=== PATIENT | male | born 1975 | race Caucasian/White ===

== ENCOUNTER 2016-08-15 14:09 | Emergency (ER) | payer BC, OTHER ==
[~2016-08-15] VITALS: Ht 188 cm; Wt 98.0 kg
--- NOTE | 2016-08-15 14:22 | ED General ---
General Stated Complaint: ELEV BLOOD SUGAR/CHEST PAIN/RACING HEART Source of Information: Patient Exam Limitations: No Limitations History of Present Illness Time Seen by Provider: 14:20 Initial Comments To ER with reports of hyperglycemia and palpitations. He awakened about one hour ago "drenched in sweat" and had sensation of palpitations. He denies chest pain. He denies shortness of breath. He checked his blood sugar and found it to be 399. This is unusual for him, though he is a diabetic his sugars normally are in the 200-300 range. He takes Byetta, glimepiride, metformin. He denies fevers or chills. He denies cough. Denies unilateral leg swelling. Denies personal known history of heart disease. He is a lifelong nonsmoker. 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 Timing/Duration: 1 Hour Severity: Moderate Associated Systoms: Denies Symptoms Allergies and Home Medications Allergies Coded Allergies: Tetanus Vaccines and Toxoid (Verified Adverse Reaction, Unknown, fever chills, 08/15/16) Home Medications Exenatide 5 Mcg/0.02 Ml Pen.injctr #3 (Reported) Gabapentin 300 Mg Capsule #90 (Reported) Glyburide 1.25 Mg Tablet (Reported) Ibuprofen 800 Mg Tablet #42 (Reported) Lisinopril 20 Mg Tablet (Reported) Metformin HCl 500 Mg Tablet (Reported) Constitutional: see HPI EENTM: see HPI Respiratory: no symptoms reported Cardiovascular: see HPINo chest pain, No edema, No Hx of Intervention, palpitations Genitourinary: no symptoms reported Musculoskeletal: no symptoms reported Skin: no symptoms reported Psychiatric/Neurological: No Symptoms Reported Hematologic/Lymphatic: No Symptoms Reported Past Wwbqucp-Djrrle-Akhwqn Hx Patient Social History Recent Foreign Travel: No Contact w/Someone Who Travel: No Physical Exam Vital Signs Vital Sign - Last 12Hours 08/15/16 14:09 Temp 98.2 Pulse 101 Resp 18 B/P 149/101 Pulse Ox 98 O2 Delivery Room Air Capillary Refill : General Appearance: No Apparent Distress WD/WN Anxious Eyes: Bilateral Eye EOMI, Bilateral Eye Normal Inspection, Bilateral Eye PERRL HEENT: PERRL/EOMI TMs Normal Neck: Full Range of Motion Normal Inspection Respiratory: Normal Breath Sounds No Accessory Muscle Use No Respiratory Distress Cardiovascular: Regular Rate, Rhythm Normal Peripheral Pulses Other (no ectopy seen on monitor, no ST segment changes on EKG.) Gastrointestinal: Normal Bowel Sounds Non Tender Soft Extremity: Normal Capillary Refill Normal Inspection Neurologic/Psychiatric: Alert Oriented x3 No Motor/Sensory Deficits Normal Mood/Affect Skin: Normal Color Warm/Dry Progress/Results/Core Measures Results/Orders Lab Results Laboratory Tests Test 08/15/16 14:15 08/15/16 14:20 08/15/16 15:28 08/15/16 16:02 Range/Units Glucometer 399 H 195 H 70-110 MG/DL Alanine Aminotransferase (ALT/SGPT) 17 0-55 U/L Albumin 4.1 3.2-4.5 G/DL Alkaline Phosphatase 184 H 40-136 U/L Anion Gap 13 5-14 MMOL/L Aspartate Amino Transf (AST/SGOT) 25 5-34 U/L BUN/Creatinine Ratio 16 Basophils # (Auto) 0.0 0.0-0.1 10^3/uL Basophils (%) (Auto) 0 0-10 % Blood Urea Nitrogen 16 7-18 MG/DL Calcium Level 9.2 8.5-10.1 MG/DL Carbon Dioxide Level 18 L 21-32 MMOL/L Chloride Level 102 98-107 MMOL/L Creatinine 1.02 0.60-1.30 MG/DL D-Dimer 0.30 0.00-0.49 UG/ML Eosinophils # (Auto) 0.1 0.0-0.3 10^3/uL Eosinophils (%) (Auto) 2 0-10 % Estimat Glomerular Filtration Rate > 60 Free Thyroxine 1.09 0.70-1.48 NG/DL Glucose Level 464 *H 70-105 MG/DL Hematocrit 44 40-54 % Hemoglobin 15.5 13.3-17.7 G/DL Lipase 43 8-78 U/L Lymphocytes # (Auto) 1.7 1.0-4.0 X 10^3 Lymphocytes (%) (Auto) 30 12-44 % Mean Corpuscular Hemoglobin 28 25-34 PG Mean Corpuscular Hemoglobin Concent 36 32-36 G/DL Mean Corpuscular Volume 79 L 80-99 FL Mean Platelet Volume 10.7 H 7.4-10.4 FL Monocytes # (Auto) 0.3 0.0-1.0 X 10^3 Monocytes (%) (Auto) 6 0-12 % Neutrophils # (Auto) 3.5 1.8-7.8 X 10^3 Neutrophils (%) (Auto) 62 42-75 % Platelet Count 270 130-400 10^3/uL Potassium Level 4.3 3.6-5.0 MMOL/L Red Blood Count 5.48 4.35-5.85 10^6/uL Red Cell Distribution Width 12.8 10.0-14.5 % Sodium Level 133 L 135-145 MMOL/L Total Bilirubin 0.4 0.1-1.0 MG/DL Total Protein 7.6 6.4-8.2 G/DL Troponin I < 0.30 <0.30 NG/ML White Blood Count 5.6 4.3-11.0 10^3/uL Urine Bacteria NEGATIVE /HPF Urine Bilirubin NEGATIVE NEGATIVE Urine Casts NONE /LPF Urine Clarity CLEAR Urine Color YELLOW Urine Crystals NONE /LPF Urine Culture Indicated NO Urine Glucose (UA) 4+ H NEGATIVE Urine Ketones NEGATIVE NEGATIVE Urine Leukocyte Esterase NEGATIVE NEGATIVE Urine Mucus NEGATIVE /LPF Urine Nitrite NEGATIVE NEGATIVE Urine Protein NEGATIVE NEGATIVE Urine RBC NONE /HPF Urine RBC (Auto) NEGATIVE NEGATIVE Urine Specific [place] 1.010 L 1.016-1.022 Urine Squamous Epithelial Cells NONE /HPF Urine Urobilinogen NORMAL NORMAL MG/DL Urine WBC NONE /HPF Urine pH 6 5-9 Test 08/15/16 17:01 Range/Units Troponin I < 0.30 <0.30 NG/ML My Orders Orders-ROSALVA SOTOMAYOR APRN Cbc With Automated Diff (08/15/16 14:12) Comprehensive Metabolic Panel (08/15/16 14:12) Lipase (08/15/16 14:12) Ua Culture If Indicated (08/15/16 14:12) Chest Pa/Lat (2 View) (08/15/16 14:12) Troponin I (08/15/16 14:12) Ekg Tracing (08/15/16 14:12) Fibrin Degradation Products (08/15/16 14:12) Aspirin Chewable Tablet (Baby Aspirin Ch (08/15/16 14:30) Alprazolam Tablet (Xanax Tablet) (08/15/16 14:30) Free T4 (Free Thyroxine) (08/15/16 14:22) Ns Iv 1000 Ml (Sodium Chloride 0.9%) (08/15/16 14:45) Insulin (Regular) Human (Humulin R (Per (08/15/16 14:45) Ondansetron Injection (Zofran Injectio (08/15/16 16:15) Troponin I (08/15/16 16:49) Medications Given in ED Current Medications Medications Dose Ordered Sig/Felicia Route Start Time Stop Time Status Last Admin Dose Admin Aspirin 324 mg ONCE ONCE PO 08/15/16 14:30 08/15/16 14:31 DC 08/15/16 14:24 324 MG Insulin Human Regular 6 unit ONCE ONCE IV 08/15/16 14:45 08/15/16 14:46 DC 08/15/16 15:09 6 UNIT Ondansetron HCl 8 mg ONCE ONCE IVP 08/15/16 16:15 08/15/16 16:16 DC 08/15/16 16:08 8 MG Vital Signs/I&O Vital Sign - Last 12Hours 08/15/16 14:09 Temp 98.2 Pulse 101 Resp 18 B/P 149/101 Pulse Ox 98 O2 Delivery Room Air Diagnostic Imaging Diagonstic Imaging: Xray Plain Films/CT/US/NM/MRI: chest Comments NAME: GEN ERIC [facility] REC#: [id number] PT STATUS: REG ER : 1975 PHYSICIAN: ROSALVA SOTOMAYOR APRN ADMIT DATE: 08/15/16/ER Draft Date of Exam:08/15/16 CHEST PA/LAT (2 VIEW) INDICATION: Tachycardia. COMPARISON: None. FINDINGS: Frontal and lateral views of the chest demonstrate questionable subtle infiltrate in the left base. The right lung is clear. Heart size is normal. There is no pneumothorax or effusion. IMPRESSION: Questionable infiltrate left base. Follow-up recommended. Dictated on workstation # [id number] Dict: 08/15/16 1440 Trans: 08/15/16 1449 [id number] Interpreted by: ANA GUTIÉRREZ Electronically signed by: Departure Communication Progress Notes Patient's requests a prescription for some sort of insulin to keep his blood sugar down as it is inadequately controlled with his Byetta glimepiride and metformin. This would be reasonable. She states that he is in a transition between physicians at this time and does not have a physician and would like me to write for this. He does currently give himself injections of the Byetta and her father is a diabetic and she draws up her father's insulin and is familiar with how to inject and draw up this medication. I've written for a prescription for Levemir vial 10 units daily at bedtime and a separate prescription for insulin syringes. Impression Impression: Primary Impression: Palpitations Additional Impression: general malaise Disposition: HOME, SELF-CARE Condition: Stable Departure-Patient Inst. Decision time for Depature: 16:27 Referrals: NO,LOCAL PHYSICIAN (PCP/Family) Primary Care Physician Patient Instructions: Diabetes Type 2 (DC), Palpitations Add. Discharge Instructions: 1. Follow-up with one of the physicians listed 2. Return to ER for any worsening Work/School Note: Work Release Form Date Seen in the Emergency Department: Aug 15, 2016 Return to Work: Aug 17, 2016 Restrictions: No Restrictions ROSALVA SOTOMAYOR APRN Aug 15, 2016 14:22
[2016-08-15 14:25] LABS: BASOPHILS % (AUTO) 0 % (0-10); EOSINOPHILS # (AUTO) 0.1 10^3/uL (0.0-0.3); EOSINOPHILS % (AUTO) 2 % (0-10); LYMPHOCYTES # (AUTO) 1.7 X 10^3 (1.0-4.0); LYMPHOCYTES % (AUTO) 30 % (12-44); MEAN CORPUSCULAR HEMOGLOBIN 28 PG (25-34); MEAN CORPUSCULAR HGB CONC 36 G/DL (32-36); MEAN CORPUSCULAR VOLUME 79 FL (80-99); MEAN PLATELET VOLUME 10.7 FL (7.4-10.4); MONOCYTES # (AUTO) 0.3 X 10^3 (0.0-1.0); MONOCYTES % (AUTO) 6 % (0-12); NEUTROPHILS # (AUTO) 3.5 X 10^3 (1.8-7.8); NEUTROPHILS % (AUTO) 62 % (42-75); PLATELET COUNT 270 10^3/uL (130-400); RED BLOOD COUNT 5.48 10^6/uL (4.35-5.85); RED CELL DISTRIBUTION WIDTH 12.8 % (10.0-14.5); WHITE BLOOD COUNT 5.6 10^3/uL (4.3-11.0)
[2016-08-15] MEDS ORDERED: GLYB1.253 (14:29)
[2016-08-15] MEDS ORDERED: METF500T4 (14:29)
[2016-08-15] MEDS ORDERED: LISI-552 (14:29)
[2016-08-15] MEDS ORDERED: IBUP-1780 (14:29)
[2016-08-15] MEDS ORDERED: GABA-488 (14:29)
[2016-08-15] MEDS ORDERED: EXEN5PEN2 (14:29)
[2016-08-15] MEDS ORDERED: ALPRAZolam 0.5 MG (XANAX) TAB PO SCH (14:30)
[2016-08-15] MEDS ORDERED: ASPIRIN 81 MG CHEW (CHILDREN'S ASA) PO ONE (14:30)
[2016-08-15 14:45] LABS: ALANINE AMINOTRANSFERASE 17 U/L (0-55); ALBUMIN 4.1 G/DL (3.2-4.5); ANION GAP 13 MMOL/L (5-14); ASPARTATE AMINO TRANSFERASE 25 U/L (5-34); BILIRUBIN,TOTAL 0.4 MG/DL (0.1-1.0); BLOOD UREA NITROGEN 16 MG/DL (7-18); BUN/CREATININE RATIO 16; CALCIUM 9.2 MG/DL (8.5-10.1); CARBON DIOXIDE 18 MMOL/L (21-32); CHLORIDE 102 MMOL/L (98-107); CREATININE SERUM 1.02 MG/DL (0.60-1.30); GFR ESTIMATED > 60; LIPASE 43 U/L (8-78); POTASSIUM 4.3 MMOL/L (3.6-5.0); SODIUM 133 MMOL/L (135-145); TOTAL PROTEIN 7.6 G/DL (6.4-8.2)
[2016-08-15] MEDS ORDERED: NS IV 1000 ML 1,000 ML IV SCH (14:45)
[2016-08-15] MEDS ORDERED: inSUlin (REGULAR) HUMAN 1 UNIT/0.01 ML (CHARGE PER UNIT) IV ONE (14:45)
[2016-08-15 14:47] LABS: GLUCOSE 464 MG/DL (70-105)
--- NOTE | 2016-08-15 14:49 | Diagnostic Imaging Report ---
INDICATION: Tachycardia. COMPARISON: None. FINDINGS: Frontal and lateral views of the chest demonstrate questionable subtle infiltrate in the left base. The right lung is clear. Heart size is normal. There is no pneumothorax or effusion. IMPRESSION: Questionable infiltrate left base. Follow-up recommended. Dictated by: Dictated on workstation # [id number]
[2016-08-15 14:51] LABS: TROPONIN I < 0.30 NG/ML (<0.30)
[2016-08-15 15:33] LABS: BILIRUBIN,URINE NEGATIVE (NEGATIVE); KETONES,URINE NEGATIVE (NEGATIVE); LEUKOCYTE ESTERASE ,URINE NEGATIVE (NEGATIVE); NITRITE,URINE NEGATIVE (NEGATIVE); PH,URINE 6 (5-9); PROTEIN,URINE NEGATIVE (NEGATIVE); UROBILINOGEN,URINE NORMAL (NORMAL)
[2016-08-15] MEDS ORDERED: ONDANSETRON 4 MG/2 ML (SDV) Z0FRAN IVP ONE (16:15)
[2016-08-15 18:09] VITALS: BP 136/86
== END 2016-08-15 18:09 | disposition home or self-care (01) ==
LOC: ER 14:11
DX: E11.65 Type 2 diabetes mellitus with hyperglycemia (principal); R00.2 Palpitations; Z79.84 Long term (current) use of oral hypoglycemic drugs; Z79.899 Other long term (current) drug therapy; R53.81 Other malaise
CPT/HCPCS: 36415; 71020; 80053; 81000; 82962; 83690; 84439; 84484; 85025; 85379; 93005; 96361; 96374; 96375

== ENCOUNTER → 2016-08-21 | Outpatient (CLI) | payer BC ==
[~2016-08-21] MED LIST: ACET-575 PO; CYCL10TA9 PO; EXEN5PEN2; GABA-488; GABA-488 PO; GLIM4TAB PO; GLYB1.253; IBUP-1780; IBUP-1780 PO; INSU100I32 SQ; INSU100V16 SQ; LISI-552; LISI-552 PO; METF1000 PO; METF500T4; METO10TA3 PO; OXYC-202 PO; PANT40TA3 PO; SERT100T8 PO
--- OUTSIDE RECORDS SUMMARY | 2016-08-21 12:20 | XMS REPORT | Continuity of Care Document ---
Author Author [facility] Organization [facility] Address Unknown Phone Unavailable Care Team Providers Care Gore Seamer Name Role Phone NO, LOCAL PHYSICIAN PCP Unavailable Insurance Providers Payer Name Policy Number Subscriber Name Relationship Unknown Gen Nugent 18 Self / Same As Patient Advance Directives Directive Response Recorded Date/Time Advance Directives No 08/15/16 2:29pm Resuscitation Status Full Code 08/15/16 2:29pm Chief Complaint and Reason for Visit Chief Complaint Glucose Problems Reason for Visit Palpitations general malaise Problems Active Problems Medical Problem Onset Date Status Palpitations Unknown Acute Medications Current Home Medications Medication Dose Units Route Directions Days/Qty Instructions Start Date Gabapentin 300 Mg 90 08/15/16 Ibuprofen 800 Mg 42 08/15/16 Glyburide 1.25 Mg 08/15/16 Metformin Hcl 500 Mg 08/15/16 Lisinopril 20 Mg 08/15/16 Exenatide 5 Mcg/0.02 Ml 3 08/15/16 Social History Social History Problem Response Recorded Date/Time Alcohol Use Denies Use 08/15/2016 2:29pm Recreational Drug Use No 08/15/2016 2:29pm Recent Foreign Travel No 08/15/2016 2:11pm Recent Infectious Disease Exposure No 08/15/2016 2:09pm Hospitalization with Isolation Denies 08/15/2016 2:09pm Smoking Status Never a Smoker 08/15/2016 2:29pm Recent Hopitalizations No 08/15/2016 2:29pm Hospitalization with Isolation Denies 08/15/2016 2:09pm Query Response Start Date Stop Date Smoking Status Never a Smoker Hospital Discharge Instructions No hospital discharge instructions. Plan of Care Discharge Date 08/15/16 6:09pm Disposition 01 HOME, SELF-CARE Condition at Discharge Stable Instructions/Education Provided Palpitations Diabetes Type 2 (DC) Forms Provided Local Medical Staff Listing Work Release Form Prescriptions See Medication Section Referrals NO,LOCAL PHYSICIAN - Primary Care Physician Additional Instructions/Education 1. Follow-up with one of the physicians listed 2. Return to ER for any worsening Functional Status No functional status results. Allergies, Adverse Reactions, Alerts Allergen Type Severity Reaction Status Last Updated Tetanus Vaccines & Toxoid ([id number]) Adverse Reaction Unknown fever chills Active 08/15/16 Immunizations No immunization records. Vital Signs Acute Vital Signs Vital Response Date/Time Temperature (Fahrenheit) 98.2 degrees F (97.6 - 99.5) 08/15/2016 2:09pm Temperature (Calculated Celsius) 36.25540 degrees C (36.4 - 37.5) 08/15/2016 2:09pm Pulse Rate (adult) 101 bpm (60 - 90) 08/15/2016 2:09pm Respiratory Rate 18 bpm (12 - 24) 08/15/2016 2:09pm O2 Sat by Pulse Oximetry 98 % (88 - 100) 08/15/2016 2:09pm Blood Pressure 149/101 mm Hg 08/15/2016 2:09pm Blood Pressure Mean 117 mm Hg 08/15/2016 2:09pm Pain Numeric Pain Scale 0-No Pain 08/15/2016 2:09pm Height (Feet) 6 feet 08/15/2016 2:09pm Height (Inches) 2 inches 08/15/2016 2:09pm Height (Calculated Centimeters) 187.578885 cm 08/15/2016 2:09pm Weight (Pounds) 216 pounds 08/15/2016 2:09pm Weight (Calculated Kilograms) 97.921079 kilograms 08/15/2016 2:09pm Capillary Refill Capillary Refill Less Than 3 Seconds 08/15/2016 2:09pm Height 6 ft 2 in Weight 216 lb Body Mass Index 27.7 kg/m^2 Results Laboratory Results Test Name Result Units Flags Reference Collection Date/Time Result Date/ Time Comments White Blood Count 5.6 10^3/uL 4.3-11.0 08/15/2016 2:20pm 08/15/2016 2: 25pm Red Blood Count 5.48 10^6/uL 4.35-5.85 08/15/2016 2:20pm 08/15/2016 2: 25pm Hemoglobin 15.5 G/DL 13.3-17.7 08/15/2016 2:20pm 08/15/2016 2:25pm Hematocrit 44 % 40-54 08/15/2016 2:20pm 08/15/2016 2:25pm Mean Corpuscular Volume 79 FL L 80-99 08/15/2016 2:2008/15/2016 2: 25pm Mean Corpuscular Hemoglobin 28 PG 25-34 08/15/2016 2:20pm 08/15/2016 2: 25pm Mean Corpuscular Hemoglobin Concent 36 G/DL 32-36 08/15/2016 2:20 2:25pm Red Cell Distribution Width 12.8 % 10.0-14.5 08/15/2016 2:20pm 2016 2:25pm Platelet Count 270 10^3/uL 130-400 08/15/2016 2:2008/15/2016 2:25pm Mean Platelet Volume 10.7 FL H 7.4-10.4 08/15/2016 2:2008/15/2016 2: 25pm Neutrophils (%) (Auto) 62 % 42-75 08/15/2016 2:08/15/2016 2:25pm Lymphocytes (%) (Auto) 30 % 12-44 08/15/2016 2:20pm 08/15/2016 2:25pm Monocytes (%) (Auto) 6 % 0-12 08/15/2016 2:08/15/2016 2:25pm Eosinophils (%) (Auto) 2 % 0-10 08/15/2016 2:08/15/2016 2:25pm Basophils (%) (Auto) 0 % 0-10 08/15/2016 2:2008/15/2016 2:25pm Neutrophils # (Auto) 3.5 X 10^3 1.8-7.8 08/15/2016 2:20pm 08/15/2016 2: 25pm Lymphocytes # (Auto) 1.7 X 10^3 1.0-4.0 08/15/2016 2:20pm 08/15/2016 2: 25pm Monocytes # (Auto) 0.3 X 10^3 0.0-1.0 08/15/2016 2:20pm 08/15/2016 2: 25pm Eosinophils # (Auto) 0.1 10^3/uL 0.0-0.3 08/15/2016 2:20pm 08/15/2016 2 :25pm Basophils # (Auto) 0.0 10^3/uL 0.0-0.1 08/15/2016 2:20pm 08/15/2016 2: 25pm D-Dimer 0.30 UG/ML 0.00-0.49 08/15/2016 2:20pm 08/15/2016 3:11pm Urine Color YELLOW 08/15/2016 3:pm 08/15/2016 3:41pm Urine Clarity CLEAR 08/15/2016 3:pm 08/15/2016 3:41pm Urine pH 6 5-9 08/15/2016 3:28pm 08/15/2016 3:41pm Urine Specific [place] 1.010 * 1.016-1.022 08/15/2016 3:pm 2016 3:41pm Urine Protein NEGATIVE NEGATIVE 08/15/2016 3:pm 08/15/2016 3:41pm Urine Glucose (UA) 4+ * NEGATIVE 08/15/2016 3:pm 08/15/2016 3:41pm Urine RBC (Auto) NEGATIVE NEGATIVE 08/15/2016 3:pm 08/15/2016 3: 41pm Urine Ketones NEGATIVE NEGATIVE 08/15/2016 3:pm 08/15/2016 3:41pm Urine Nitrite NEGATIVE NEGATIVE 08/15/2016 3:pm 08/15/2016 3:41pm Urine Bilirubin NEGATIVE NEGATIVE 08/15/2016 3:08/15/2016 3: 41pm Urine Urobilinogen NORMAL MG/DL NORMAL 08/15/2016 3:pm 08/15/2016 3: 41pm Urine Leukocyte Esterase NEGATIVE NEGATIVE 08/15/2016 3:pm 2016 3:41pm Urine RBC NONE /HPF 08/15/2016 3:pm 08/15/2016 3:41pm Urine WBC NONE /HPF 08/15/2016 3:pm 08/15/2016 3:41pm Urine Bacteria NEGATIVE /HPF 08/15/2016 3:pm 08/15/2016 3:41pm Urine Squamous Epithelial Cells NONE /HPF 08/15/2016 3:2016 3:41pm Urine Crystals NONE /LPF 08/15/2016 3:08/15/2016 3:41pm Urine Casts NONE /LPF 08/15/2016 3:08/15/2016 3:41pm Urine Mucus NEGATIVE /LPF 08/15/2016 3:08/15/2016 3:41pm Urine Culture Indicated NO 08/15/2016 3:08/15/2016 3:41pm Sodium Level 133 MMOL/L L 135-145 08/15/2016 2:08/15/2016 2:47pm Potassium Level 4.3 MMOL/L 3.6-5.0 08/15/2016 2:08/15/2016 2:47pm Chloride Level 102 MMOL/L 98-107 08/15/2016 2:pm 08/15/2016 2:47pm Carbon Dioxide Level 18 MMOL/L L 21-32 08/15/2016 2:08/15/2016 2: 47pm Anion Gap 13 MMOL/L 5-14 08/15/2016 2:08/15/2016 2:47pm Blood Urea Nitrogen 16 MG/DL 7-18 08/15/2016 2:pm 08/15/2016 2:47pm Creatinine 1.02 MG/DL 0.60-1.30 08/15/2016 2:pm 08/15/2016 2:47pm BUN/Creatinine Ratio 16 08/15/2016 2:08/15/2016 2:47pm Estimat Glomerular Filtration Rate > 60 08/15/2016 2:2016 2:47pm GFR INTERPRETIVE DATA UNITS FOR ESTIMATED GFR (eGFR): mL/min/1.73 M2 REFERENCE RANGE FOR ESTIMATED GFR (eGFR) eGFR NORMAL eGFR >60 MODERATELY DECREASED eGFR 30-59 SEVERLY DECREASED eGFR 15-29 KIDNEY FAILURE <15 (OR DIALYSIS) Glucose Level 464 MG/DL CH 70-105 08/15/2016 2:20pm 08/15/2016 2:47pm RESULTS CALLED TO KELSY AT 1447. RESULTS READ BACK: YES. Glucometer 195 MG/DL H 70-110 08/15/2016 4:02pm 08/15/2016 4:10pm Calcium Level 9.2 MG/DL 8.5-10.1 08/15/2016 2:20pm 08/15/2016 2:47pm Total Bilirubin 0.4 MG/DL 0.1-1.0 08/15/2016 2:20pm 08/15/2016 2:47pm Alkaline Phosphatase 184 U/L H 40-136 08/15/2016 2:20pm 08/15/2016 2: 47pm Aspartate Amino Transf (AST/SGOT) 25 U/L 5-34 08/15/2016 2:20pm 2016 2:47pm Alanine Aminotransferase (ALT/SGPT) 17 U/L 0-55 08/15/2016 2:20pm 08/15 2:47pm Troponin I < 0.30 NG/ML <0.30 08/15/2016 5:01pm 08/15/2016 5:34pm Total Protein 7.6 G/DL 6.4-8.2 08/15/2016 2:20pm 08/15/2016 2:47pm Albumin 4.1 G/DL 3.2-4.5 08/15/2016 2:20pm 08/15/2016 2:47pm Lipase 43 U/L 8-78 08/15/2016 2:20pm 08/15/2016 2:47pm Free Thyroxine 1.09 NG/DL 0.70-1.48 08/15/2016 2:20pm 08/15/2016 3: 12pm Procedures Procedure Status Date Provider(s) Tracing only of electrocardiogram Active 08/15/16 ROSALVA SOTOMAYOR APRN Encounters Encounter Location Arrival/Admit Date Discharge/Depart Date Attending Provider Departed Emergency Room [facility] 08/15/16 2:11pm 08/15 6:09pm ROSALVA SOTOMAYOR APRN Recent Diagnosis
[2016-08-21 12:33] LABS: BASOPHILS % (AUTO) 0 % (0-10); EOSINOPHILS # (AUTO) 0.1 10^3/uL (0.0-0.3); EOSINOPHILS % (AUTO) 1 % (0-10); LYMPHOCYTES # (AUTO) 2.1 X 10^3 (1.0-4.0); LYMPHOCYTES % (AUTO) 25 % (12-44); MEAN CORPUSCULAR HEMOGLOBIN 28 PG (25-34); MEAN CORPUSCULAR HGB CONC 36 G/DL (32-36); MEAN CORPUSCULAR VOLUME 79 FL (80-99); MEAN PLATELET VOLUME 10.5 FL (7.4-10.4); MONOCYTES # (AUTO) 0.6 X 10^3 (0.0-1.0); MONOCYTES % (AUTO) 7 % (0-12); NEUTROPHILS # (AUTO) 5.6 X 10^3 (1.8-7.8); NEUTROPHILS % (AUTO) 67 % (42-75); PLATELET COUNT 291 10^3/uL (130-400); RED BLOOD COUNT 6.04 10^6/uL (4.35-5.85); RED CELL DISTRIBUTION WIDTH 13.2 % (10.0-14.5); WHITE BLOOD COUNT 8.3 10^3/uL (4.3-11.0)
[2016-08-21 12:56] LABS: ALANINE AMINOTRANSFERASE 14 U/L (0-55); ALBUMIN 4.5 G/DL (3.2-4.5); AMYLASE 91 U/L (25-125); ANION GAP 14 MMOL/L (5-14); ASPARTATE AMINO TRANSFERASE 20 U/L (5-34); BILIRUBIN,TOTAL 0.9 MG/DL (0.1-1.0); BLOOD UREA NITROGEN 19 MG/DL (7-18); BUN/CREATININE RATIO 20; CARBON DIOXIDE 15 MMOL/L (21-32); CHLORIDE 103 MMOL/L (98-107); CREATININE SERUM 0.93 MG/DL (0.60-1.30); GFR ESTIMATED > 60; GLUCOSE 295 MG/DL (70-105); POTASSIUM 4.4 MMOL/L (3.6-5.0); SODIUM 132 MMOL/L (135-145); TOTAL PROTEIN 8.1 G/DL (6.4-8.2)
--- NOTE | 2016-08-21 14:20 | Physician Query-Final Dx ---
NIECY DUTTA 08/21/16 1420: Clinic Account Progress/Dx Physician Query: Please give diagnosis Please specify the location of the patients abd pain thank you Date of Service Aug 21, 2016 at 12:17 CHINTAN AMES DO 08/24/16 0714: Clinic Account Progress/Dx DIAGNOSIS: Diagnosis upper NIECY DUTTA Aug 21, 2016 14:20 CHINTAN AMES DO Aug 24, 2016 07:14
== END ==
LOC: LAB 12:17
PROVIDERS: ATTEND Family Medicine
DX: E11.9 Type 2 diabetes mellitus without complications (principal); R53.1 Weakness; R10.10 Upper abdominal pain, unspecified
CPT/HCPCS: 36415; 80053; 82150; 83036; 85025

== ENCOUNTER 2016-09-04 00:47 | Day surgery (SDC) | payer BC ==
[2016-09-04] VITALS (8 sets, daily range): BP systolic 115–142; BP diastolic 69–81
[~2016-09-04] VITALS: Ht 188 cm; Wt 104.3 kg
[~2016-09-04 00:47] MED LIST changes: -ACET-575 PO; -CYCL10TA9 PO; -GABA-488 PO; -GLIM4TAB PO; -IBUP-1780 PO; -INSU100I32 SQ; -INSU100V16 SQ; -LISI-552 PO; -METF1000 PO; -METO10TA3 PO; -OXYC-202 PO; -PANT40TA3 PO; -SERT100T8 PO
--- OUTSIDE RECORDS SUMMARY | 2016-09-04 00:55 | XMS REPORT | Continuity of Care Document ---
Author Author [facility] Organization [facility] Address Unknown Phone Unavailable Care Team Providers Care [facility] Name Role Phone NO, LOCAL PHYSICIAN PCP [...] Status Last Updated Tetanus Vaccines & Toxoid ([id number]) Adverse Reaction Unknown fever chills Active 08/15/16 Immunizations No immunization records. Vital Signs Acute Vital Signs Vital Response Date/Time Temperature (Fahrenheit) 98.2 degrees F (97.6 - 99.5) 08/15/2016 2:09pm Temperature (Calculated Celsius) 36.96332 degrees C (36.4 - 37.5) 08/15/2016 2:09pm [...] 2 inches 08/15/2016 2:09pm Height (Calculated Centimeters) 187.952939 cm 08/15/2016 2:09pm Weight (Pounds) 216 pounds 08/15/2016 2:09pm Weight (Calculated Kilograms) 97.390394 kilograms 08/15/2016 2:09pm Capillary Refill Capillary Refill [...] 5-9 08/15/2016 3:28pm 08/15/2016 3:41pm Urine Specific [place] 1.010 * 1.016-1.022 08/15/2016 3:pm 2016 3:41pm [...] Date Attending Provider Departed Emergency Room [facility] 08/15/16 2:11pm 08/15 6:09pm ROSALVA SOTOMAYOR APRN Recent Diagnosis
[2016-09-04] MEDS ORDERED: METO10TA3 PO (01:02)
[2016-09-04] MEDS ORDERED: CYCL10TA9 PO ×2 (01:02→14:17)
[2016-09-04] MEDS ORDERED: PANT40TA3 PO (01:02)
[2016-09-04] MEDS ORDERED: LISI-552 PO (01:04)
[2016-09-04] MEDS ORDERED: METF1000 PO (01:04)
[2016-09-04] MEDS ORDERED: SERT100T8 PO (01:04)
[2016-09-04] MEDS ORDERED: GABA-488 PO (01:04)
[2016-09-04] MEDS ORDERED: GLIM4TAB PO (01:04)
[2016-09-04] MEDS ORDERED: INSU100V16 SQ (01:04)
[2016-09-04] MEDS ORDERED: INSU100I32 SQ (01:04)
[2016-09-04] MEDS ORDERED: KETOROLAC 30 MG/ML VIAL IVP ONE (01:15)
[2016-09-04] MEDS ORDERED: DIAZEPAM INJ 10 MG/2 ML (VALIUM) SYR IV ONE (01:15)
--- NOTE | 2016-09-04 01:17 | ED Back Pain ---
General Chief Complaint: Back Problems Stated Complaint: BACK PAIN Nursing Triage Note: PT REPORTS HE WAS SITTING ON THE TOILET AT HOME WHEN HAD SUDDEN ONSET LOWER BACK PAIN. REPORTS HX OF CHRONIC BACK PAIN Nursing Sepsis Screen: No Definite Risk Source of Information: Patient, EMS, Family History of Present Illness Time Seen by Provider: 00:55 Initial Comments PT ARRIVES VIA [facility] FROM HOME STATES HE HAS BEEN FINE ALL DAY, SAT DOWN ON TOILET AND HAD SUDDEN SEVERE PAIN IN LEFT SI JOINT AREA, RADIATES DOWN LEFT LEG TO FOOT. STATES HE CANNOT MOVE OR STAND DUE TO PAIN HAS TINGLING IN LEFT HEEL NO MOTOR DEFICITS DENIES ANY STRENUOUS ACTIVITY, LIFTING, TWISTING OR BENDING PRIOR TO EPISODE HAS HAD SAME IN PAST--07/18/16 GOT TRIPPED BY DOG AND HAD EXACT SAME THING. HAD BEEN DOING "PERFECTLY FINE" AND STATES HE QUIT TAKING ALL THE MEDICATIONS FOR THAT A FEW WEEKS AGO--HAD BEEN PRESCRIBED VALIUM 07/19, BACLOFEN AND HYDROCODONE 07/22. HAD ALSO BEEN PRESCRIBED GABAPENTIN AND FLEXERIL HAS HISTORY OF BACK PAIN TOOK TYLENOL, 2 GABAPENTIN AND 2 FLEXERIL TONIGHT AT 2100 WITHOUT RELIEF EMS GAVE FENTANYL 100 MCG WITH MILD RELIEF Other Comments PCP: DR. AMES Allergies and Home Medications Allergies Coded Allergies: Tetanus Vaccines and Toxoid (Verified Adverse Reaction, Unknown, fever chills, 08/15/16) Home Medications Cyclobenzaprine HCl 10 Mg Tablet #30 (Reported) Gabapentin 300 Mg Capsule 300 MG PO (Reported) Glimepiride 4 Mg Tablet 4 MG PO (Reported) Insulin Aspart 100 Unit/1 Ml Susp 1,000 UNIT SQ (Reported) Insulin Degludec 100 Unit/1 Ml Insuln.pen 100 UNIT SQ (Reported) Lisinopril 20 Mg Tablet 20 MG PO DAILY (Reported) Metformin HCl 1,000 Mg Tablet 1,000 MG PO BID (Reported) Metoclopramide HCl 10 Mg Tablet #30 (Reported) Pantoprazole Sodium 40 Mg Tablet. #30 (Reported) Sertraline HCl 100 Mg Tablet 100 MG PO (Reported) Constitutional: no symptoms reported Respiratory: no symptoms reported Cardiovascular: no symptoms reported Gastrointestinal: no symptoms reported Genitourinary: no symptoms reported Musculoskeletal: see HPI Skin: no symptoms reported Psychiatric/Neurological: See HPI Past Gnmdhyd-Yecgaj-Axcnni Hx Patient Social History Alcohol Use: Denies Use Recreational Drug Use: No Smoking Status: Never a Smoker Recent Foreign Travel: No Contact w/Someone Who Travel: No Recent Infectious Disease Expo: No Recent Hopitalizations: No Surgeries HX Surgeries: Yes Surgeries: Gallbladder Respiratory Hx Respiratory Disorders: No Cardiovascular Hx Cardiac Disorders: Yes Cardiac Disorders: Hypertension Neurological Hx Neurological Disorders: No Reproductive System Hx Reproductive Disorders: No Genitourinary Hx Genitourinary Disorders: No Gastrointestinal Hx Gastrointestinal Disorders: Yes Gastrointestinal Disorders: Gastroesophageal Reflux Musculoskeletal Hx Musculoskeletal Disorders: Yes (SCIATICA) Musculoskeletal Disorders: Chronic Back Pain Endocrine Hx Endocrine Disorders: Yes Endocrine Disorders: Diabetes, Insulin dep HEENT HX ENT Disorders: No Cancer Hx Cancer: No Psychosocial Hx Psychiatric Problems: No Integumentary HX Skin/Integumentary Disorder: No Blood Transfusions Hx Blood Disorders: No Physical Exam Vital Signs Vital Sign - Last 12Hours 09/04/16 00:48 Temp 98.9 Pulse 94 Resp 20 B/P 152/91 Pulse Ox 96 O2 Delivery Room Air Capillary Refill : Less Than 3 Seconds General Appearance: No Apparent Distress WD/WN Other (INTERMITTENT WRITHING AND WAILING IN PAIN--C/O SPASMS) Neck: Full Range of Motion Normal Inspection Non Tender Supple Cardiovascular: Regular Rate, Rhythm No Edema No JVD No Murmur Normal Peripheral Pulses Respiratory: Normal Breath Sounds No Accessory Muscle Use No Respiratory Distress Peripheral Pulses: 3+ Dorsalis Pedis (R), 3+ Left Dors-Pedis (L) Gastrointestinal: Non Tender Soft Back: No CVA Tenderness No Vertebral Tenderness Other (MARKED TENDERNESS TO LEFT SI JOINT AND LEFT BUTTOCK, WITH SIGNIFICANT MUSCLE SPASMS IN LEFT BUTTOCK. C/O SEVERE PAIN WITH MINIMAL STRAIGHT LEG RAISING ON LEFT. DTR'S 1/4 BILATERALLY. ) Extremity: Normal Capillary Refill No Calf Tenderness No Pedal Edema Neurologic/Psychiatric: Alert Oriented x3 No Motor/Sensory Deficits director strategic planning II- XII Norm as Tested Other (ANXIOUS) Skin: Normal Color Warm/DryNo Rash Progress/Results/Core Measures Results/Orders My Orders Orders-DEISY RICE DO Diazepam Injection (Valium Injection) (09/04/16 01:15) Ketorolac Injection (Toradol Injection) (09/04/16 01:15) Fentanyl Injection (Sublimaze Injection (09/04/16 01:22) Fentanyl Injection (Sublimaze Injection (09/04/16 01:23) Orphenadrine Injection (Norflex Injectio (09/04/16 02:00) Fentanyl Injection (Sublimaze Injection (09/04/16 02:00) Accucheck Stat ONCE (09/04/16 02:13) Medications Given in ED Current Medications Medications Dose Ordered Sig/Felicia Route Start Time Stop Time Status Last Admin Dose Admin Diazepam 5 mg ONCE ONCE IV 09/04/16 01:15 09/04/16 01:16 DC 09/04/16 01:10 5 MG Ketorolac Tromethamine 30 mg ONCE ONCE IVP 09/04/16 01:15 09/04/16 01:16 DC 09/04/16 01:12 30 MG Orphenadrine Citrate 60 mg ONCE ONCE IV 09/04/16 02:00 09/04/16 02:02 DC 09/04/16 02:09 60 MG Vital Signs/I&O Vital Sign - Last 12Hours 09/04/16 00:48 Temp 98.9 Pulse 94 Resp 20 B/P 152/91 Pulse Ox 96 O2 Delivery Room Air Blood Pressure Mean: 111 Progress Note : Progress Note CONTINUES TO WAIL AND WRITHE IN PAIN AND CONTINUES TO C/O SEVERE INTERMITTENT SPASMS TO AREA. PT ALSO REPEATEDLY WANTING SOMETHING TO EAT --STATES HE HASN'T EATEN ALL DAY ACCUCHECK 189 Departure Communication Progress Notes 0205--SPOKE WITH DR. AMES, ACCEPTS PT FOR ADMIT. WOULD LIKE ORTHO CONSULT IN AM Impression Impression: Primary Impression: ACUTE EXACERBATION OF LEFT SIDED SCIATICA Additional Impressions: Chronic back pain INTRACTABLE PAIN AND SPASMS Disposition: ADMITTED INPATIENT Condition: Stable Decision to Admit Reason: Admit from ER (General) Decision to Admit/Date: Sep 04, 2016 Time/Decision to Admit Time: 02:05 Departure-Patient Inst. Referrals: CHINTAN AMES DO (PCP/Family) Primary Care Physician DEISY RICE DO Sep 04, 2016 01:17
[2016-09-04] MEDS ORDERED: fentaNYL INJECTION 100 MCG/2 ML AMP ONE (01:22)
[2016-09-04] MEDS ORDERED: fentaNYL INJECTION 100 MCG/2 ML AMP IVP STA ×2 (01:23→02:00)
[2016-09-04] MEDS ORDERED: ORPHENADRINE 60 MG/2 ML (NORFLEX) AMP IV ONE (02:00)
[2016-09-04] MEDS ORDERED: CATHETER FLUSH 10 ML SYR IV PRN (03:00)
[2016-09-04] MEDS ORDERED: ONDANSETRON 4 MG/2 ML (SDV) Z0FRAN IV PRN (03:00)
[2016-09-04] MEDS ORDERED: DIAZEPAM INJ 10 MG/2 ML (VALIUM) SYR IV PRN (03:00)
[2016-09-04] MEDS ORDERED: METOCLOPRAMIDE INJ 10 MG/2 ML (REGLAN) IV PRN (03:00)
[2016-09-04] MEDS ORDERED: morphine PCA 30 MG/30 ML VIAL IV PRN (03:00)
[2016-09-04] MEDS ORDERED: diphenhydrAMINE 50 MG/ML INJ (BENADRYL) IV PRN (03:00)
[2016-09-04] MEDS ORDERED: NALOXONE 0.4 MG/ML 1 ML (NARCAN) VIAL IV PRN (03:00)
[2016-09-04] MEDS: NS IV 1000 ML 1,000 ML IV SCH ×3 (03:31→23:00)
[2016-09-04] MEDS: CATHETER FLUSH 10 ML SYR IV SCH ×3 (05:23→22:00)
[2016-09-04 05:58] LABS: BASOPHILS % (AUTO) 0 % (0-10); EOSINOPHILS # (AUTO) 0.1 10^3/uL (0.0-0.3); EOSINOPHILS % (AUTO) 2 % (0-10); LYMPHOCYTES # (AUTO) 1.9 X 10^3 (1.0-4.0); LYMPHOCYTES % (AUTO) 28 % (12-44); MEAN CORPUSCULAR HEMOGLOBIN 29 PG (25-34); MEAN CORPUSCULAR HGB CONC 35 G/DL (32-36); MEAN CORPUSCULAR VOLUME 84 FL (80-99); MEAN PLATELET VOLUME 10.1 FL (7.4-10.4); MONOCYTES # (AUTO) 0.5 X 10^3 (0.0-1.0); MONOCYTES % (AUTO) 7 % (0-12); NEUTROPHILS # (AUTO) 4.4 X 10^3 (1.8-7.8); NEUTROPHILS % (AUTO) 63 % (42-75); PLATELET COUNT 213 10^3/uL (130-400); RED BLOOD COUNT 4.39 10^6/uL (4.35-5.85); RED CELL DISTRIBUTION WIDTH 13.5 % (10.0-14.5); WHITE BLOOD COUNT 6.9 10^3/uL (4.3-11.0)
[2016-09-04] MEDS: inSUlin (REGULAR) HUMAN 1 UNIT/0.01 ML (CHARGE PER UNIT) SC SCH ×4 (06:00→21:00)
[2016-09-04] MEDS ORDERED: inSUlin ASPART (NovoLOG) 1 UNIT/0.01 ML (CHARGE PER UNIT) SC SCH (06:00)
[2016-09-04 06:18] LABS: ALANINE AMINOTRANSFERASE 14 U/L (0-55); ALBUMIN 3.3 G/DL (3.2-4.5); ANION GAP 11 MMOL/L (5-14); ASPARTATE AMINO TRANSFERASE 25 U/L (5-34); BILIRUBIN,TOTAL 0.5 MG/DL (0.1-1.0); BLOOD UREA NITROGEN 10 MG/DL (7-18); BUN/CREATININE RATIO 14; CALCIUM 8.3 MG/DL (8.5-10.1); CARBON DIOXIDE 21 MMOL/L (21-32); CHLORIDE 106 MMOL/L (98-107); CREATININE SERUM 0.73 MG/DL (0.60-1.30); GFR ESTIMATED > 60; GLUCOSE 194 MG/DL (70-105); POTASSIUM 3.9 MMOL/L (3.6-5.0); SODIUM 138 MMOL/L (135-145); TOTAL PROTEIN 5.8 G/DL (6.4-8.2)
--- NOTE | 2016-09-04 08:41 | History & Physicial ---
History of Present Illness History of Present Illness Reason for visit/HPI SEVERE LOW BACK PAIN. pATIENT STATED HE WENT TO SIT ON THE TOILET AND SOME HAD SEVERE BACK PAIN. Rated the pain as a 10 out of 10. Patient had to have ambulance taken to the emergency room. Patient admitted to the severity of the pain. Date of Admission Sep 04, 2016 at 02:05 I consulted on this patient on 09/04/16 08:39 Attending Physician Rajendra Ames DO Admitting Physician Rajendra Ames DO Consult Allergies and Home Medications Allergies Coded Allergies: Tetanus Vaccines and Toxoid (Verified Adverse Reaction, Unknown, fever chills, 08/15/16) Home Medications Cyclobenzaprine HCl 10 Mg Tablet #30 (Reported) Gabapentin 300 Mg Capsule 300 MG PO (Reported) Glimepiride 4 Mg Tablet 4 MG PO (Reported) Insulin Aspart 100 Unit/1 Ml Susp 1,000 UNIT SQ (Reported) Insulin Degludec 100 Unit/1 Ml Insuln.pen 100 UNIT SQ (Reported) Lisinopril 20 Mg Tablet 20 MG PO DAILY (Reported) Metformin HCl 1,000 Mg Tablet 1,000 MG PO BID (Reported) Metoclopramide HCl 10 Mg Tablet #30 (Reported) Pantoprazole Sodium 40 Mg Tablet.dr #30 (Reported) Sertraline HCl 100 Mg Tablet 100 MG PO (Reported) Past Ohdzpds-Cdrnpl-Vuyomg Hx Patient Social History Marrital Status: Employed/Student: employed Alcohol Use: Denies Use Recreational Drug Use: No Smoking Status: Never a Smoker Physical Abuse Screen: No Sexual Abuse: No Recent Foreign Travel: No Contact w/other who traveled: No Recent Hopitalizations: No Recent Infectious Disease Expo: No Seasonal Allergies Seasonal Allergies: No Surgeries HX Surgeries: Yes Surgeries: Gallbladder Respiratory Hx Respiratory Disorders: No Cardiovascular Hx Cardiovascular Disorders: Yes Cardiac Disorders: Hypertension Neurological Hx Neurological Disorders: No Reproductive System Hx Reproductive Disorders: No Genitourinary Hx Genitourinary Disorders: No Gastrointestinal Hx Gastrointestinal Disorders: Yes Gastrointestinal Disorders: Gastroesophageal Reflux Musculoskeletal Hx Musculoskeletal Disorders: Yes (SCIATICA) Musculoskeletal Disorders: Chronic Back Pain Endocrine Hx Endocrine Disorders: Yes Endocrine Disorders: Diabetes, Insulin dep HEENT HX ENT Disorders: No Cancer Hx Cancer: No Psychosocial Hx Psychiatric Problems: No Integumentary HX Skin/Integumentary Disorder: No Blood Transfusions Hx Blood Disorders: No Constitutional: other (severe back plain) EENTM: no symptoms reported Respiratory: no symptoms reported Cardiovascular: no symptoms reported Gastrointestinal: no symptoms reported Genitourinary: no symptoms reported Physical Exam Vital Signs Vital Sign - Last 12Hours 09/04/16 09/04/16 00:48 02:30 Temp 98.9 Pulse 94 Resp 20 B/P 152/91 Pulse Ox 96 O2 Delivery Room Air O2 Flow Rate 2 Capillary Refill : Less Than 3 Seconds General Appearance: No Apparent Distress WD/WN Eyes: Bilateral Eye Normal Inspection HEENT: Normal ENT Inspection Neck: Normal Inspection Respiratory: Chest Non Tender Lungs Clear Normal Breath Sounds No Accessory Muscle Use No Respiratory Distress Cardiovascular: Regular Rate, Rhythm No Murmur Gastrointestinal: Non Tender Soft Assessment/Plan Assessment and Plan severe low back pain. Diabetic. Clinical Quality Measures DVT/VTE Risk/Contraindication: Risk Factor Score Per Nursin RFS Level Per Nursing on Admit: 1=Low/No VTE PPX RAJENDRA AMES DO Sep 04, 2016 08:41
[2016-09-04] MEDS: KETOROLAC 30 MG/ML VIAL IV PRN ×2 (08:53→16:02)
[2016-09-04] MEDS ORDERED: IBUP-1780 PO (09:33)
[2016-09-04] MEDS ORDERED: ACET-575 PO (09:34)
--- NOTE | 2016-09-04 09:58 | Diagnostic Imaging Report ---
PROCEDURE: MRI lumbar spine. TECHNIQUE: Multiplanar, multisequence MRI of the lumbar spine was performed without contrast. INDICATION: Low back pain and left hip and leg pain. FINDINGS: There is straightening of the lumbar spine. The vertebral body heights are preserved. There is moderate disc height loss and disc desiccation at L5-S1. Endplate edema around this disc is also seen from Modic-type I changes. There is no significant marrow signal abnormality seen otherwise. The cauda equina and conus medullaris appear grossly unremarkable. T12-L1: No disc herniation, no spinal canal or foraminal stenosis. L1-L2: No disc herniation, no spinal canal or foraminal stenosis. L2-L3: No disc herniation. There is mild facet hypertrophy. No spinal canal or foraminal stenosis. L3-L4: There is no disc herniation. There is mild/ moderate facet hypertrophy. No central canal or lateral recess stenosis. No foraminal narrowing. L4-L5: There is moderate facet arthropathy bilaterally and minimal disc bulge seen. No central canal stenosis. There is mild narrowing of the lateral recess bilaterally abutting the descending L5 nerve roots. The foramina demonstrate no significant narrowing. L5-S1: There is a large left posterior lateral disc extrusion at the level of the left lateral recess with caudal migration component measuring 1.6 cm craniocaudally. The disc extrusion is 1.5 cm in transverse dimension and 1.1 cm anteroposteriorly. It results in severe lateral recess stenosis below the disc level along the upper/ mid S1 vertebral body level compressing the descending left S1 nerve root. There is mild facet hypertrophy at this level and mild background disc bulge. No central canal stenosis. There is mild narrowing of the right lateral recess. There is bilateral mild foraminal stenosis. IMPRESSION: Large left posteriolateral disc extrusion with prominent caudal migration filling the left lateral recess along the upper S1 vertebral level and compressing the descending left S1 nerve root. Dictated by: Dictated on workstation # [id number]
[2016-09-04] MEDS: SENNA W/DOCUSATE (SENOKOT S) TABLET PO SCH (10:51)
[2016-09-04] MEDS ORDERED: BUP/EPI 0.25% 1:200,000 (MARCAINE) 30 ML VIAL ONE (11:57)
[2016-09-04] MEDS ORDERED: GENTAMICIN 40 MG/ML 2 ML INJ SDV ONE (11:57)
[2016-09-04] MEDS ORDERED: fentaNYL INJECTION 250 MCG/5 ML AMP ONE (12:03)
[2016-09-04] MEDS ORDERED: ROCURONIUM 50 MG/5 ML (ZEMURON) VIAL IV ONE (12:04)
[2016-09-04] MEDS ORDERED: LIDOCAINE PF 2% 10 ML (XYLOCAINE) AMP ONE (12:04)
[2016-09-04] MEDS ORDERED: MIDAZOLAM 2 MG/2 ML (VERSED) VIAL ONE (12:04)
[2016-09-04] MEDS ORDERED: ONDANSETRON 4 MG/2 ML (SDV) Z0FRAN ONE (12:04)
[2016-09-04] MEDS ORDERED: proPOfol 200 MG/20 ML (DIPRIVAN) VIAL IV ONE (12:04)
[2016-09-04] MEDS ORDERED: LACTATED RINGERS 1,000 ML IV ONE ×2 (12:05→14:49)
[2016-09-04] MEDS: LACTATED RINGERS 1,000 ML IV PRN ×2 (12:38→14:28)
[2016-09-04] MEDS ORDERED: ceFAZolin 1,000 MG (ANCEF) VIAL ONE (13:17)
[2016-09-04] MEDS ORDERED: NS (IVPB) 100 ML ONE (13:17)
--- NOTE | 2016-09-04 13:23 | Consultation ---
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 He was unable to function and had to be brought by ambulance to hospital. He is in extreme pain at this point. He was admitted by ED and PCP for pain control and we were consulted. Allergies and Home Medications Allergies Coded Allergies: Tetanus Vaccines and Toxoid (Verified Adverse Reaction, Unknown, fever chills, 08/15/16) Home Medications Acetaminophen/Diphenhydramine 1 Each Tablet 2 TAB PO HS PRN PRN SLEEP/PAIN ( Reported) Cyclobenzaprine HCl 10 Mg Tablet 10 MG PO Q8H PRN PRN MUSCLE SPASMS (Reported) Gabapentin 300 Mg Capsule 300 MG PO TID PRN PRN PAIN (Reported) Glimepiride 4 Mg Tablet 4 MG PO BID (Reported) Ibuprofen 800 Mg Tablet 800 MG PO Q8H PRN PRN PAIN (Reported) Insulin Aspart 100 Unit/1 Ml Susp SQ AC (Reported) SLIDING SCALE A 60-200 = 0 UNITS 201-250 = 3 UNITS 251-300 = 5 UNITS 301- 350 = 7 UNITS 351-400 = 9 UNITS GREATER THAN 400 CALL PROVIDER Insulin Degludec 100 Unit/1 Ml Insuln.pen 10 UNIT SQ DAILY (Reported) Lisinopril 20 Mg Tablet 20 MG PO HS (Reported) Metformin HCl 1,000 Mg Tablet 1,000 MG PO BID (Reported) Metoclopramide HCl 10 Mg Tablet 10 MG PO TID PRN PRN STOMACH UPSET (Reported) Pantoprazole Sodium 40 Mg Tablet.dr 40 MG PO DAILY (Reported) Sertraline HCl 100 Mg Tablet 100 MG PO DAILY (Reported) Past Bvjumzo-Gamxcd-Qtmnqn Hx Patient Social History Alcohol Use: Denies Use Recreational Drug Use: No Smoking Status: Never a Smoker Recent Foreign Travel: No Contact w/Someone Who Travel: No Recent Infectious Disease Expo: No Recent Hopitalizations: No Physical Abuse Screen: No Sexual Abuse: No Seasonal Allergies Seasonal Allergies: No Surgeries HX Surgeries: Yes Surgeries: Gallbladder Respiratory Hx Respiratory Disorders: No Cardiovascular Hx Cardiac Disorders: Yes Cardiac Disorders: Hypertension Neurological Hx Neurological Disorders: No Reproductive System Hx Reproductive Disorders: No Genitourinary Hx Genitourinary Disorders: No Gastrointestinal Hx Gastrointestinal Disorders: Yes Gastrointestinal Disorders: Gastroesophageal Reflux Musculoskeletal Hx Musculoskeletal Disorders: Yes (SCIATICA) Musculoskeletal Disorders: Chronic Back Pain Endocrine Hx Endocrine Disorders: Yes Endocrine Disorders: Diabetes, Insulin dep HEENT HX ENT Disorders: No Cancer Hx Cancer: No Psychosocial Hx Psychiatric Problems: No Integumentary HX Skin/Integumentary Disorder: No Blood Transfusions Hx Blood Disorders: No Review of Systems-General Constitutional: no symptoms reported EENTM: no symptoms reported Respiratory: no symptoms reported Cardiovascular: no symptoms reported Gastrointestinal: no symptoms reported Genitourinary: no symptoms reported Musculoskeletal: back pain joint pain Skin: no symptoms reported Psychiatric/Neurological: No Symptoms Reported Physical Exam-General Problems Physical Exam Vital Signs Vital Sign - Last 12Hours 09/04/16 09/04/16 00:48 02:30 Temp 98.9 Pulse 94 Resp 20 B/P 152/91 Pulse Ox 96 O2 Delivery Room Air O2 Flow Rate 2 Capillary Refill : Less Than 3 Seconds General Appearance: severe distress Eyes: Bilateral Eye Normal Inspection HEENT: PERRL/EOMI Neck: supple normal inspection Respiratory: no respiratory distress no accessory muscle use Cardiovascular: regular rate, rhythm Peripheral Pulses: 2+ Dorsalis Pedis (R), 2+ Left Dors-Pedis (L) Gastrointestinal: non tender soft Genital/Rectal: normal rectal tone Back: normal inspection no CVA tenderness no vertebral tenderness Extremities: no pedal edema Neurologic/Psychiatric: alert normal mood/affect oriented x 3 other (+ SLR and decreased left S1 sensation, unable to asses gait due to pain) Skin: normal color Comments Large Left L5-S1 HNP, with caudal migration Assessment/Plan Assessment/Plan Admission Diagnosis/Plan Large Left L5-S1 HNP Left Leg Sciatica Uncontrolled DM Plan left l5-s1 microdiscectomy Risk/Benefits/alternatives discussed with patient and family agree to proceed Clinical Quality Measures DVT/VTE Risk/Contraindication: Risk Factor Score Per Nursin RFS Level Per Nursing on Admit: 1=Low/No VTE PPX CHACHO FINCH MD Sep 04, 2016 1:23 pm
[2016-09-04] MEDS ORDERED: ceFAZolin 1,000 MG (ANCEF) VIAL IVP SCH (13:30)
--- NOTE | 2016-09-04 14:15 | Progress Note-Post Operative ---
Post-Operative Progess Note Thoracic Surgeon CYNTHIA Castano Pre-Operative Diagnosis Lumbar HNP, Left Leg Sciatica Post-Operative Diagnosis Same Post-Op Procedure Note Date of Procedure: Sep 04, 2016 Name of Procedure: Left L5-S1 Microdiscectomy Procedure Note/Findings HNP Anesthesia Type GETA Estimated blood loss (mL): <50 Specimen(s) collected Disc CHACHO FINCH MD Sep 04, 2016 2:15 pm
[2016-09-04] MEDS ORDERED: OXYC-202 PO (14:17)
--- NOTE | 2016-09-04 14:46 | Diagnostic Imaging Report ---
Indication: Low back pain. Discussion: Fluoroscopic support was provided during intraoperative lumbar spine surgery. Single submitted image demonstrates a metallic marker posterior to the L5-S1 disc space. Please see the operative report for full detail. Fluoroscopy time: 3 seconds. Impression: Intraoperative lumbar spine surgery. Dictated by: Dictated on workstation # [id number]
[2016-09-04] MEDS ORDERED: SEVOFLURANE (ULTANE) 15 ML INHAL SOLN ONE (14:49)
[2016-09-04] MEDS ORDERED: ONDANSETRON 4 MG/2 ML (SDV) Z0FRAN IVP PRN (17:15)
[2016-09-04] MEDS ORDERED: morphine INJ 10 MG/ML 1ML (SYR OR VIAL) IVP PRN (17:15)
[2016-09-04] MEDS: oxyCODONE/APAP 10/325MG (PERCOCET 10) TABLET PO PRN ×3 (17:59→21:43)
--- NOTE | 2016-09-04 22:38 | OPERATIVE REPORT ---
PROCEDURE PHYSICIAN: CHACHO LEMON DATE OF PROCEDURE: 09/04/2016 PREOPERATIVE DIAGNOSES: 1. Large L5/S1 disk herniation. 2. Left leg sciatica. 3. Intractable pain. POSTOPERATIVE DIAGNOSES: 1. Large L5/S1 disk herniation. 2. Left leg sciatica. 3. Intractable pain. PROCEDURE PERFORMED: Left L5-S1 microdiskectomy. DATE AND TIME OF SURGERY: Please see anesthesia record. SURGEON: Dr. Lemon TOP LIFTER: DAJUAN Castano. ROLE OF PATIENT RELATIONS COORDINATOR: Aid in retraction of procedure, suction around neural elements, and wound closure. ANESTHESIA: General endotracheal. ESTIMATED BLOOD LOSS: Less than 50 mL. IV FLUIDS: Please see anesthesia record. ANTIBIOTICS: 3 grams of Ancef. COMPLICATIONS: None. INDICATIONS FOR THE PROCEDURE: Mr. Nugent is a 41-year-old male with several weeks of back pain with acute onset of severe left leg sciatica, intractable to the point that he had to call the ambulance for help. He was admitted by the primary care physician in the emergency department of the hospital for pain control and was still not well controlled. The risks, benefits and alternatives were discussed and the patient and family elected to proceed with microdiskectomy. DESCRIPTION OF PROCEDURE: The patient was taken to the preoperative holding area and brought back to the operative suite. After adequate induction of general anesthetic, preoperative antibiotics were given and he was turned prone on the Lionel table. Careful padding to all extremities, sterile prep and draped posterior lumbar spine. Incision was made in the midline. Dissection carried down to the level of the lamina. C-arm was brought in confirmation, L5/S1 level was confirmed. Left-sided hemilaminotomy was created medial facetectomy. Thecal sac and root were retracted overlying a large extruded fragment of disk material. Several fragments of disk material were removed. Once all the free fragments were freed, the annulus was inspected it was not felt repairable with an annular device; therefore, diskectomy alone was sufficient. Hemostasis was achieved with bipolar electrocautery and FloSeal. The wound was copiously irrigated, closed in layers. The patient was transferred to the recovery room having tolerated the procedure well. Job ID: [id number] Dictated Date: 09/04/2016 14:21:49 Marketer Date: 09/04/2016 22:25:10 / jerald
[2016-09-05] VITALS: BP 120/78
[2016-09-05] MEDS: KETOROLAC 30 MG/ML VIAL IV PRN (00:33)
[2016-09-05] MEDS: CYCLOBENZAPRINE 10 MG (FLEXERIL) TAB PO PRN ×2 (00:33→09:16)
[2016-09-05] MEDS: oxyCODONE/APAP 10/325MG (PERCOCET 10) TABLET PO PRN ×3 (03:39→12:01)
[2016-09-05] MEDS: NS IV 1000 ML 1,000 ML IV SCH (03:40)
[2016-09-05 04:00] VITALS: BP 148/86
[2016-09-05] MEDS: inSUlin (REGULAR) HUMAN 1 UNIT/0.01 ML (CHARGE PER UNIT) SC SCH ×2 (05:49→11:20)
[2016-09-05] MEDS: CATHETER FLUSH 10 ML SYR IV SCH (05:49)
--- NOTE | 2016-09-05 07:53 | Progress Note-Standard ---
Standard Progress Note Progress Notes/Assess & Plan Progress/Assessment & Plan Doing better today, Leg pain gone, Had some post-op confusion last night and stayed overnight, much better today. No complaints. Exam: Neuro stable dressing back dry Mention, A&Ox3 Imp: Lumbar HNP Left Leg Sciatica Plan: D/C home CHACHO FINCH MD Sep 05, 2016 7:52 am
[2016-09-05 08:00] VITALS: BP 116/62
[2016-09-05] MEDS: SENNA W/DOCUSATE (SENOKOT S) TABLET PO SCH (08:06)
--- NOTE | 2016-09-05 12:34 | Anesthesia-General Post-Op ---
General Patient Condition Mental Status/LOC: Same as Preop Cardiovascular: Satisfactory Nausea/Vomiting: Absent Respiratory: Satisfactory Pain: Controlled Complications: Absent Post Op Complications Complications None Follow Up Care/Instructions Patient Instructions None needed. Anesthesia/Patient Condition Patient Condition Immediately after surgery, patient was disorientated and was having trouble recalling past events. Now however, patient is doing well, no complaints, stable vital signs, no apparent adverse anesthesia problems. To be discharged this am. No complications reported per nursing. ARLETH RICE CRNA Sep 05, 2016 12:34
[2016-09-05 13:47] VITALS: BP 116/62
--- OUTSIDE RECORDS SUMMARY | 2016-09-07 13:54 | XMS REPORT | Continuity of Care Document ---
Author Author [facility] Organization [facility] Address Unknown Phone Unavailable Care Team Providers Care Patent Drafter Name Role Phone CHINTAN AMES DO PCP Insurance Providers Payer Name Policy Number Subscriber Name Relationship [facility] [id number] Gen Nugent 18 Self / Same As Patient Advance Directives Directive Response Recorded Date/Time Advance Directives No 09/04/16 2:47am Health Care Power of Industrial Boilermaker No 09/04/16 2:47am Organ Donor No 09/04/16 2:47am Resuscitation Status Full Code 09/04/16 2:47am Chief Complaint and Reason for Visit Chief Complaint INTRACTABLE PAIN-ACUTE EXACERBATION L SCIATICA Reason for Visit Palpitations Problems Active Problems Medical Problem Onset Date Status Chronic back pain Unknown Acute Palpitations Unknown Acute Medications Current Home Medications Medication Dose Units Route Directions Days/Qty Instructions Start Date Metoclopramide Hcl 10 Mg 10 Mg Oral Three Times A Day as needed for Stomach Upset 09/04/16 Pantoprazole Sodium 40 Mg 40 Mg Oral Daily 09/04/16 Gabapentin 300 Mg 300 Mg Oral Three Times A Day as needed for Pain 09/04/16 Lisinopril 20 Mg 20 Mg Oral Bedtime 09/04/16 Sertraline Hcl 100 Mg 100 Mg Oral Daily 09/04/16 Metformin Hcl 1,000 Mg 1,000 Mg Oral Twice A Day 09/04/16 Glimepiride 4 Mg 4 Mg Oral Twice A Day 09/04/16 Insulin Degludec 100 Unit/1 Ml 10 Unit Sub-Q Daily 09/04/16 Insulin Aspart 100 Unit/1 Ml Sub-Q Before Meals SLIDING SCALE A 60- 200=0 UNITS 201-250=3 UNITS 251-300=5 UNITS 301-350=7 UNITS 351-400=9 UNITS GREATER THAN 400 CALL PROVIDER 09/04/16 Ibuprofen 800 Mg 800 Mg Oral Every 8HRS as needed for Pain 09/04/16 Acetaminophen/Diphenhydramine 1 Each 2 Tab Oral Bedtime as needed for Sleep /Pain 09/04/16 Cyclobenzaprine Hcl 10 Mg 10 Mg Oral Every 8HRS as needed for Muscle Spasms 30 09/04/16 Oxycodone Hcl/Acetaminophen 1 Each 1 Each Oral As Needed as needed for Pain 30 09/04/16 Past Home Medications Medication Directions Ordered Status Gabapentin 300 Mg Capsule, 08/15/16 Discontinued Ibuprofen 800 Mg Tablet, 08/15/16 Discontinued Glyburide 1.25 Mg Tablet, 08/15/16 Discontinued Metformin Hcl 500 Mg Tablet, 08/15/16 Discontinued Lisinopril 20 Mg Tablet, 08/15/16 Discontinued Exenatide 5 Mcg/0.02 Ml Pen.injctr, 08/15/16 Discontinued Cyclobenzaprine Hcl 10 Mg Tablet, 10 Mg Oral Every 8HRS as needed for Muscle Spasms 09/04/16 Discontinued Social History Social History Problem Response Recorded Date/Time Alcohol Use Denies Use 09/04/2016 2:47am Recreational Drug Use No 09/04/2016 2:47am Recent Foreign Travel No 09/04/2016 2:47am Recent Infectious Disease Exposure No 09/04/2016 2:47am Hospitalization with Isolation Denies 09/05/2016 1:58pm Smoking Status Never a Smoker 09/04/2016 2:47am Recent Hopitalizations No 09/04/2016 2:47am Hospitalization with Isolation Denies 09/05/2016 1:58pm Query Response Start Date Stop Date Smoking Status Never a Smoker Hospital Discharge Instructions No hospital discharge instructions. Plan of Care Discharge Date 09/05/16 12:25pm Disposition 01 HOME, SELF-CARE Instructions/Education Provided Herniated Disc Intervertebral Discectomy (DC) Prescriptions See Medication Section Care Plan and Goals Functional Status Query Response Date Recorded Patient Orientation Person Place Time Situation September 05, 2016 1:58pm Comprehension Ability Understands Concepts September 04, 2016 8:25pm Allergies, Adverse Reactions, Alerts Allergen Type Severity Reaction Status Last Updated Tetanus Vaccines & Toxoid ([id number]) Adverse Reaction Unknown fever chills Active 08/15/16 Immunizations No immunization records. Vital Signs Acute Vital Signs Vital Response Date/Time Temperature (Fahrenheit) 98.4 degrees F (97.6 - 99.5) 09/05/2016 1:47pm Temperature (Calculated Celsius) 36.37476 degrees C (36.4 - 37.5) 09/05/2016 8:00am Temperature Source Tympanic 09/05/2016 1:47pm Pulse Rate (adult) 84 bpm (60 - 90) 09/05/2016 1:47pm Respiratory Rate 20 bpm (12 - 24) 09/05/2016 1:47pm O2 Sat by Pulse Oximetry 96 % (88 - 100) 09/05/2016 1:47pm Blood Pressure 116/62 mm Hg 09/05/2016 1:47pm Blood Pressure Mean 80 mm Hg 09/05/2016 8:00am Pain Numeric Pain Scale 4 09/05/2016 1:47pm Height (Feet) 6 feet 09/04/2016 2:47am Height (Inches) 2.00 inches 09/04/2016 2:47am Height (Calculated Centimeters) 187.219017 cm 09/04/2016 2:47am Weight (Pounds) 230 pounds 09/04/2016 2:56am Weight (Ounces) 0.0 oz 09/04/2016 2:56am Weight (Calculated Grams) 853467.246 gm 09/04/2016 2:56am Weight (Calculated Kilograms) 104.680033 kilograms 09/04/2016 2:56am Calculated BMI 29.5 09/04/2016 2:47am Capillary Refill Capillary Refill Less Than 3 Seconds 09/05/2016 8:00am Results Laboratory Results Test Name Result Units Flags Reference Collection Date/Time Result Date/ Time Comments White Blood Count 5.6 10^3/uL 4.3-11.0 08/15/2016 2:20pm 08/15/2016 2: 25pm Red Blood Count 5.48 10^6/uL 4.35-5.85 08/15/2016 2:20pm 08/15/2016 2: 25pm Hemoglobin 15.5 G/DL 13.3-17.7 08/15/2016 2:2008/15/2016 2:25pm Hematocrit 44 % 40-54 08/15/2016 2:2008/15/2016 2:25pm Mean Corpuscular Volume 79 FL L 80-99 08/15/2016 2:2008/15/2016 2: 25pm Mean Corpuscular Hemoglobin 28 PG 25-34 08/15/2016 2:2008/15/2016 2: 25pm Mean Corpuscular Hemoglobin Concent 36 G/DL 32-36 08/15/2016 2:20 2:25pm Red Cell Distribution Width 12.8 % 10.0-14.5 08/15/2016 2:202016 2:25pm Platelet Count 270 10^3/uL 130-400 08/15/2016 2:20pm 08/15/2016 2:25pm Mean Platelet Volume 10.7 FL H 7.4-10.4 08/15/2016 2:2008/15/2016 2: 25pm Neutrophils (%) (Auto) 62 % 42-75 08/15/2016 2:2008/15/2016 2:25pm Lymphocytes (%) (Auto) 30 % 12-44 08/15/2016 2:08/15/2016 2:25pm Monocytes (%) (Auto) 6 % 0-12 08/15/2016 2:2008/15/2016 2:25pm Eosinophils (%) (Auto) 2 % 0-10 08/15/2016 2:08/15/2016 2:25pm Basophils (%) (Auto) 0 % 0-10 08/15/2016 2:2008/15/2016 2:25pm Neutrophils # (Auto) 3.5 X 10^3 1.8-7.8 08/15/2016 2:2008/15/2016 2: 25pm Lymphocytes # (Auto) 1.7 X 10^3 1.0-4.0 08/15/2016 2:20pm 08/15/2016 2: 25pm Monocytes # (Auto) 0.3 X 10^3 0.0-1.0 08/15/2016 2:2008/15/2016 2: 25pm Eosinophils # (Auto) 0.1 10^3/uL 0.0-0.3 08/15/2016 2:20pm 08/15/2016 2 :25pm Basophils # (Auto) 0.0 10^3/uL 0.0-0.1 08/15/2016 2:20pm 08/15/2016 2: 25pm D-Dimer 0.30 UG/ML 0.00-0.49 08/15/2016 2:20pm 08/15/2016 3:11pm Urine Color YELLOW 08/15/2016 3:08/15/2016 3:41pm Urine Clarity CLEAR 08/15/2016 3:pm 08/15/2016 3:41pm Urine pH 6 5-9 08/15/2016 3:pm 08/15/2016 3:41pm Urine Specific Clear 1.010 * 1.016-1.022 08/15/2016 3:pm 2016 3:41pm Urine Protein NEGATIVE NEGATIVE 08/15/2016 3:pm 08/15/2016 3:41pm Urine Glucose (UA) 4+ * NEGATIVE 08/15/2016 3:08/15/2016 3:41pm Urine RBC (Auto) NEGATIVE NEGATIVE 08/15/2016 3:pm 08/15/2016 3: 41pm Urine Ketones NEGATIVE NEGATIVE 08/15/2016 3:pm 08/15/2016 3:41pm Urine Nitrite NEGATIVE NEGATIVE 08/15/2016 3:pm 08/15/2016 3:41pm Urine Bilirubin NEGATIVE NEGATIVE 08/15/2016 3:pm 08/15/2016 3: 41pm Urine Urobilinogen NORMAL MG/DL NORMAL 08/15/2016 3:08/15/2016 3: 41pm Urine Leukocyte Esterase NEGATIVE NEGATIVE 08/15/2016 3:2016 3:41pm Urine RBC NONE /HPF 08/15/2016 3:pm 08/15/2016 3:41pm Urine WBC NONE /HPF 08/15/2016 3:pm 08/15/2016 3:41pm Urine Bacteria NEGATIVE /HPF 08/15/2016 3:28pm 08/15/2016 3:41pm Urine Squamous Epithelial Cells NONE /HPF 08/15/2016 3:pm 2016 3:41pm Urine Crystals NONE /LPF 08/15/2016 3:08/15/2016 3:41pm Urine Casts NONE /LPF 08/15/2016 3:08/15/2016 3:41pm Urine Mucus NEGATIVE /LPF 08/15/2016 3:08/15/2016 3:41pm Urine Culture Indicated NO 08/15/2016 3:08/15/2016 3:41pm Sodium Level 133 MMOL/L L 135-145 08/15/2016 2:08/15/2016 2:47pm Potassium Level 4.3 MMOL/L 3.6-5.0 08/15/2016 2:08/15/2016 2:47pm Chloride Level 102 MMOL/L 98-107 08/15/2016 2:08/15/2016 2:47pm Carbon Dioxide Level 18 MMOL/L L -08/15/2016 2:08/15/2016 2: 47pm Anion Gap 13 MMOL/L 5-14 08/15/2016 2:08/15/2016 2:47pm Blood Urea Nitrogen 16 MG/DL 7-18 08/15/2016 2:08/15/2016 2:47pm Creatinine 1.02 MG/DL 0.60-1.30 08/15/2016 2:20pm 08/15/2016 2:47pm BUN/Creatinine Ratio 16 08/15/2016 2:08/15/2016 2:47pm Estimat Glomerular Filtration Rate > 60 08/15/2016 2:2016 2:47pm GFR INTERPRETIVE DATA UNITS FOR ESTIMATED GFR (eGFR): mL/min/1.73 M2 REFERENCE RANGE FOR ESTIMATED GFR (eGFR) eGFR NORMAL eGFR >60 MODERATELY DECREASED eGFR 30-59 SEVERLY DECREASED eGFR 15-29 KIDNEY FAILURE <15 (OR DIALYSIS) Glucose Level 464 MG/DL 70-105 08/15/2016 2:20pm 08/15/2016 2:47pm RESULTS CALLED TO KELSY AT 1447. RESULTS READ BACK: YES. Glucometer 195 MG/DL H 70-110 08/15/2016 4:02pm 08/15/2016 4:10pm Calcium Level 9.2 MG/DL 8.5-10.1 08/15/2016 2:08/15/2016 2:47pm Total Bilirubin 0.4 MG/DL 0.1-1.0 08/15/2016 [...] NG/DL 0.70-1.48 08/15/2016 2:20pm 08/15/2016 3: 12pm Pending Laboratory Results Test Name Collection Date/Time Procedures Procedure Status Date Provider(s) Lumbar laminectomy with microdiscectomy Completed 09/04/16 CHACHO FINCH MD Tracing only of electrocardiogram Completed 08/15/16 ROSALVA SOTOMAYOR APRN Encounters Encounter Location Arrival/Admit Date Discharge/Depart Date Attending Provider Admitted Inpatient (obs) [facility] 09/04/16 2:05am CHINTAN AMES DO Registered Clinic [facility] 08/21/16 12:17pm CHINTAN AMES DO Departed Emergency Room [facility] 08/15/16 2:11pm 08/15 6:09pm ROSALVA SOTOMAYOR APRN Recent Diagnosis Palpitations
--- OUTSIDE RECORDS SUMMARY | 2016-09-07 13:54 | XMS REPORT | Continuity of Care Document ---
Author Author [facility] Organization [facility] Address Unknown Phone Unavailable Care Team Providers Care Exhibitions And Collections Manager Name Role Phone CHINTAN AMES DO PCP Insurance Providers Payer Name Policy Number Subscriber Name Relationship [facility] [id number] Gen Nugent 18 Self / Same As Patient Advance Directives Directive Response Recorded Date/Time Advance Directives No 09/04/16 2:47am Health Care Power of Calender Wind Up Tender No 09/04/16 2:47am Organ Donor No 09/04/16 [...] Status Last Updated Tetanus Vaccines & Toxoid ([id number]) Adverse Reaction Unknown fever chills Active 08/15/16 Immunizations No immunization records. Vital Signs Acute Vital Signs Vital Response Date/Time Temperature (Fahrenheit) 98.4 degrees F (97.6 - 99.5) 09/05/2016 1:47pm Temperature (Calculated Celsius) 36.25417 degrees C (36.4 - 37.5) 09/05/2016 8:00am [...] 2.00 inches 09/04/2016 2:47am Height (Calculated Centimeters) 187.527999 cm 09/04/2016 2:47am Weight (Pounds) 230 pounds 09/04/2016 2:56am Weight (Ounces) 0.0 oz 09/04/2016 2:56am Weight (Calculated Grams) 540332.246 gm 09/04/2016 2:56am Weight (Calculated Kilograms) 104.286509 kilograms 09/04/2016 2:56am Calculated BMI 29.5 09/04/2016 [...] 5-9 08/15/2016 3:pm 08/15/2016 3:41pm Urine Specific [place] 1.010 * 1.016-1.022 08/15/2016 3:pm 2016 3:41pm [...] Date Attending Provider Admitted Inpatient (obs) [facility] 09/04/16 2:05am CHINTAN AMES DO Registered Clinic [facility] 08/21/16 12:17pm CHINTAN AMES DO Departed Emergency Room [facility] 08/15/16 2:11pm 08/15 6:09pm ROSALVA SOTOMAYOR APRN Recent Diagnosis Palpitations
--- NOTE | 2016-09-10 07:16 | Discharge Summary ---
Diagnosis/Chief Complaint Date of Admission Date of Discharge Discharge Date: Admission Diagnosis Admission Diagnosis severe low back pain. Diabetic. Discharge Diagnosis large L5/S1 disc herniation. Left leg sciatica. Intractable pain. Diabetes. Essential hypertension. GERD. Reason Hospital Visit SEVERE LOW BACK PAIN. pATIENT STATED HE WENT TO SIT ON THE TOILET AND SOME HAD SEVERE BACK PAIN. Rated the pain as a 10 out of 10. Patient had to have ambulance taken to the emergency room. Patient admitted to the severity of the pain. Discharge Summary Procedures surgery for large L5/S1 disc herniation Consultations surgeon Discharge Physical Examination Allergies: Coded Allergies: Tetanus Vaccines and Toxoid (Verified Adverse Reaction, Unknown, fever chills, 08/15/16) Vitals & I&Os Vital Signs Date Time Temp Pulse Resp B/P Pulse Ox O2 Delivery O2 Flow Rate FiO2 09/05/16 13:47 84 20 116/62 96 09/05/16 08:00 98.4 Room Air 09/05/16 00:00 4.00 Hospital Course patient had surgery at L5/S1 disc herniation Labs (last 24 hrs) Laboratory Tests 09/04/16 02:19: Glucometer 189H 09/04/16 05:37: Alanine Aminotransferase (ALT/SGPT) 14, Albumin 3.3, Alkaline Phosphatase 94, Anion Gap 11, Aspartate Amino Transf (AST/SGOT) 25, BUN/Creatinine Ratio 14, Basophils # (Auto) 0.0, Basophils (%) (Auto) 0, Blood Urea Nitrogen 10, Calcium Level 8.3L, Carbon Dioxide Level 21, Chloride Level 106, Creatinine 0.73, Eosinophils # (Auto) 0.1, Eosinophils (%) (Auto) 2, Estimat Glomerular Filtration Rate > 60, Glucose Level 194H, Hematocrit 37L, Hemoglobin 12.7L, Lymphocytes # (Auto) 1.9, Lymphocytes (%) (Auto) 28, Mean Corpuscular Hemoglobin 29, Mean Corpuscular Hemoglobin Concent 35, Mean Corpuscular Volume 84, Mean Platelet Volume 10.1, Monocytes # (Auto) 0.5, Monocytes (%) (Auto) 7, Neutrophils # (Auto) 4.4, Neutrophils (%) (Auto) 63, Platelet Count 213, Potassium Level 3.9, Red Blood Count 4.39, Red Cell Distribution Width 13.5, Sodium Level 138, Total Bilirubin 0.5, Total Protein 5.8L, White Blood Count 6.9 09/04/16 11:28: Glucometer 177H 09/04/16 16:27: Glucometer 188H 09/04/16 20:39: Glucometer 218H 09/05/16 05:32: Glucometer 168H 09/05/16 11:25: Glucometer 222H Microbiology 09/04/16 MRSA Screen - Final, Complete MRSA not isolated Laboratory Tests 09/04/16 05:37 Pending Labs Microbiology Date/Time Source Procedure Growth Status 09/04/16 11:20 Nasal MRSA Screen - Final MRSA not isolated Complete Laboratory Tests 09/04/16 02:19: Glucometer 189 09/04/16 05:37: Alanine Aminotransferase (ALT/SGPT) 14, Albumin 3.3, Alkaline Phosphatase 94, Anion Gap 11, Aspartate Amino Transf (AST/SGOT) 25, BUN/Creatinine Ratio 14, Basophils # (Auto) 0.0, Basophils (%) (Auto) 0, Blood Urea Nitrogen 10, Calcium Level 8.3, Carbon Dioxide Level 21, Chloride Level 106, Creatinine 0.73, Eosinophils # (Auto) 0.1, Eosinophils (%) (Auto) 2, Estimat Glomerular Filtration Rate > 60, Glucose Level 194, Hematocrit 37, Hemoglobin 12.7, Lymphocytes # (Auto) 1.9, Lymphocytes (%) (Auto) 28, Mean Corpuscular Hemoglobin 29, Mean Corpuscular Hemoglobin Concent 35, Mean Corpuscular Volume 84, Mean Platelet Volume 10.1, Monocytes # (Auto) 0.5, Monocytes (%) (Auto) 7, Neutrophils # (Auto) 4.4, Neutrophils (%) (Auto) 63, Platelet Count 213, Potassium Level 3.9, Red Blood Count 4.39, Red Cell Distribution Width 13.5, Sodium Level 138, Total Bilirubin 0.5, Total Protein 5.8, White Blood Count 6.9 09/04/16 11:28: Glucometer 177 09/04/16 16:27: Glucometer 188 09/04/16 20:39: Glucometer 218 09/05/16 05:32: Glucometer 168 09/05/16 11:25: Glucometer 222 Discussion & Recommendations patient had severe low back pain. Patient had surgery for disc herniation. Discharge Home Medications: Active Scripts Active Percocet 10-325 mg Tablet (Oxycodone HCl/Acetaminophen) 1 Each Tablet 1 Each PO PRN PRN Cyclobenzaprine HCl 10 Mg Tablet 10 Mg PO Q8H PRN Reported Acetaminophen Pm Caplet (Acetaminophen/Diphenhydramine) 1 Each Tablet 2 Tab PO HS PRN Ibuprofen 800 Mg Tablet 800 Mg PO Q8H PRN Novolog (Insulin Aspart) 100 Unit/1 Ml Susp SQ AC SLIDING SCALE A 60-200 = 0 UNITS 201-250 = 3 UNITS 251-300 = 5 UNITS 301-350 = 7 UNITS 351-400 = 9 UNITS GREATER THAN 400 CALL PROVIDER Kristine Flextouch U-100 (Insulin Degludec) 100 Unit/1 Ml Insuln.pen 10 Unit SQ DAILY Glimepiride 4 Mg Tablet 4 Mg PO BID Metformin HCl 1,000 Mg Tablet 1,000 Mg PO BID Sertraline HCl 100 Mg Tablet 100 Mg PO DAILY Lisinopril 20 Mg Tablet 20 Mg PO HS Gabapentin 300 Mg Capsule 300 Mg PO TID PRN Pantoprazole Sodium 40 Mg Tablet.dr 40 Mg PO DAILY Metoclopramide HCl 10 Mg Tablet 10 Mg PO TID PRN Instructions to patient/family Please see electonic discharge instructions given to patient. Clinical Quality Measures DVT/VTE Risk/Contraindication: Risk Factor Score Per Nursin RFS Level Per Nursing on Admit: 1=Low/No VTE PPX CHINTAN AMES DO Sep 10, 2016 07:16
== END 2016-09-05 12:25 | disposition home or self-care (01) ==
LOC: EDUNIT# 00:47 → ER 00:50 → SDC 02:05 → UNDOADMOB 02:05 → 4TH 02:05 → UNDODISOB 09-05 12:25 → SDC 09-05 12:25
PROVIDERS: ATTEND Orthopaedic Surgery Orthopaedic Surgery of the Spine
DX: M51.17 Intervertebral disc disorders with radiculopathy, lumbosacral region (principal); I10 Essential (primary) hypertension; E11.9 Type 2 diabetes mellitus without complications; K21.9 Gastro-esophageal reflux disease without esophagitis; R41.0 Disorientation, unspecified; Z79.4 Long term (current) use of insulin; Z79.899 Other long term (current) drug therapy
CPT/HCPCS: 36415; 72148; 80053; 82962; 85025; 87081; 88304; 96374; 96375; 96376; 99285

== ENCOUNTER → 2016-09-18 | Outpatient (CLI) | payer BC ==
[~2016-09-18] MED LIST changes: +ACET-575 PO; +CYCL10TA9 PO; +GABA-488 PO; +GLIM4TAB PO; +IBUP-1780 PO; +INSU100I32 SQ; +INSU100V16 SQ; +LISI-552 PO; +METF1000 PO; +METO10TA3 PO; +OXYC-202 PO; +PANT40TA3 PO; +SERT100T8 PO
--- OUTSIDE RECORDS SUMMARY | 2016-09-18 07:47 | XMS REPORT | Continuity of Care Document ---
Author Author [facility] Organization [facility] Address Unknown Phone Unavailable Care Team Providers Care Safety Investigator/Cause Analyst Name Role Phone CHINTAN AMES DO PCP Insurance Providers Payer Name Policy Number Subscriber Name Relationship [facility] [id number] Gen Nugent 18 Self / Same As Patient Advance Directives Directive Response Recorded Date/Time Advance Directives No 09/04/16 2:47am Health Care Power of Donor Support Technician No 09/04/16 2:47am Organ Donor No 09/04/16 2:47am Resuscitation Status Full Code 09/04/16 2:47am Problems Active Problems Medical Problem Onset Date [...] No 09/04/2016 2:47am Hospitalization with Isolation Denies 09/07/2016 1:51pm Smoking Status Never a Smoker 09/04/2016 2:47am Recent Hopitalizations No 09/04/2016 2:47am Hospitalization with Isolation Denies 09/07/2016 1:51pm Query Response Start Date Stop Date Smoking Status Never a Smoker Hospital Discharge Instructions No hospital discharge instructions. Plan of Care Discharge Date 09/05/16 12:25pm Instructions/Education Provided Herniated Disc Intervertebral Discectomy (DC) Prescriptions See Medication Section Functional Status Query Response Date Recorded Patient Orientation Person Place Time Situation September 07, 2016 1:51pm Comprehension Ability Understands Concepts September 04, 2016 8:25pm Allergies, Adverse Reactions, Alerts Allergen Type Severity Reaction Status Last Updated Tetanus Vaccines & Toxoid ([id number]) Adverse Reaction Unknown fever chills Active 08/15/16 Immunizations No immunization records. Vital Signs Acute Vital Signs Vital Response Date/Time Temperature (Fahrenheit) 98.4 degrees F (97.6 - 99.5) 09/05/2016 1:47pm Temperature (Calculated Celsius) 36.38250 degrees C (36.4 - 37.5) 09/05/2016 8:00am [...] 2.00 inches 09/04/2016 2:47am Height (Calculated Centimeters) 187.367010 cm 09/04/2016 2:47am Weight (Pounds) 230 pounds 09/04/2016 2:56am Weight (Ounces) 0.0 oz 09/04/2016 2:56am Weight (Calculated Grams) 558897.246 gm 09/04/2016 2:56am Weight (Calculated Kilograms) 104.790988 kilograms 09/04/2016 2:56am Calculated BMI 29.5 09/04/2016 [...] Corpuscular Volume 79 FL L 80-99 08/15/2016 2:20pm 08/15/2016 2: 25pm Mean Corpuscular Hemoglobin 28 PG 25-34 08/15/2016 2:20pm 08/15/2016 2: 25pm Mean Corpuscular Hemoglobin Concent 36 G/DL 32-36 08/15/2016 2:20 2:25pm Red Cell Distribution Width 12.8 % 10.0-14.5 08/15/2016 2:20pm 2016 2:25pm Platelet Count 270 10^3/uL 130-400 08/15/2016 2:20pm 08/15/2016 2:25pm Mean Platelet Volume 10.7 FL H 7.4-10.4 08/15/2016 2:2008/15/2016 2: 25pm Neutrophils (%) (Auto) 62 % 42-75 08/15/2016 2:20pm 08/15/2016 2:25pm Lymphocytes (%) (Auto) 30 % 12-44 08/15/2016 2:2008/15/2016 2:25pm Monocytes (%) (Auto) 6 % 0-12 08/15/2016 2:2008/15/2016 2:25pm Eosinophils (%) (Auto) 2 % 0-10 08/15/2016 2:2008/15/2016 2:25pm Basophils (%) (Auto) 0 % 0-10 [...] 5-9 08/15/2016 3:28pm 08/15/2016 3:41pm Urine Specific [place] 1.010 * 1.016-1.022 08/15/2016 3:28pm 2016 3:41pm Urine Protein NEGATIVE NEGATIVE 08/15/2016 [...] Urine Squamous Epithelial Cells NONE /HPF 08/15/2016 3:28pm 2016 3:41pm Urine Crystals NONE /LPF 08/15/2016 [...] 4:10pm Calcium Level 9.2 MG/DL 8.5-10.1 08/15/2016 2:pm 08/15/2016 2:47pm Total Bilirubin 0.4 MG/DL 0.1-1.0 [...] Pending Laboratory Results Test Name Collection Date/Time Pending Microbiology Results Procedure Source Collection Date/Time Procedures Procedure Status Date Provider(s) Lumbar laminectomy with microdiscectomy Completed 09/04/16 CHACHO FINCH MD Tracing only of electrocardiogram Completed 08/15/16 ROSALVA SOTOMAYOR APRN Encounters Encounter Location Arrival/Admit Date Discharge/Depart Date Attending Provider Departed [facility] 09/04/16 2:05am 12:25pm CHACHO FINCH MD Registered Clinic [facility] 08/21/16 12:17pm CHINTAN AMES DO Departed Emergency Room [facility] 08/15/16 2:11pm 08/15 6:09pm ROSALVA SOTOMAYOR APRN Recent Diagnosis Palpitations
[2016-09-18 08:17] LABS: CHOLESTEROL 194 MG/DL (< 200); DIRECT LDL 115 MG/DL (1-129); GLUCOSE 245 MG/DL (70-105); TRIGLYCERIDES 127 MG/DL (<150); VLDL CHOLESTEROL 25 MG/DL (5-40)
== END ==
LOC: LAB 07:41
PROVIDERS: ATTEND Family Medicine
DX: E11.9 Type 2 diabetes mellitus without complications (principal); E78.5 Hyperlipidemia, unspecified
CPT/HCPCS: 36415; 80061; 82947

== ENCOUNTER 2022-06-12 14:19 | Observation (INO) | payer BC ==
[~2022-06-12] VITALS: Ht 188 cm; Wt 113.9 kg
[~2022-06-12 14:19] MED LIST changes: +CYCL10TA25 PO; -CYCL10TA9 PO; -GLIM4TAB PO; +GLIM4TAB5 PO; -LISI-552; -LISI-552 PO; +LISI20TA26; +LISI20TA26 PO; +METF-397; +METF-399 PO; -METF1000 PO; -METF500T4; -METO10TA3 PO; +MTC10T PO; -OXYC-202 PO; +OXYC1TAB12 PO; -PANT40TA3 PO; +PANT40TA52 PO; +SERT-414 PO; -SERT100T8 PO
[2022-06-12 15:07] LABS: BILIRUBIN,URINE NEGATIVE (NEGATIVE); CLARITY,URINE CLEAR; COLOR,URINE YELLOW; GLUCOSE, URINE (UA) NEGATIVE (NEGATIVE); KETONES,URINE NEGATIVE (NEGATIVE); LEUKOCYTE ESTERASE ,URINE NEGATIVE (NEGATIVE); NITRITE,URINE NEGATIVE (NEGATIVE); PROTEIN,URINE NEGATIVE (NEGATIVE)
[2022-06-12 15:13] LABS: BACTERIA,URINE NEGATIVE /HPF; RBC,URINE RARE /HPF; SQUAMOUS EPITHELIAL CELL,UR RARE /HPF; WBC,URINE RARE /HPF
[2022-06-12 15:13] LABS: ALBUMIN 4.4 GM/DL (3.2-4.5)
[2022-06-12 15:14] LABS: BASOPHILS # (AUTO) 0.1 10^3/uL (0.0-0.1); BASOPHILS % (AUTO) 1 % (0-10); EOSINOPHILS # (AUTO) 0.4 10^3/uL (0.0-0.3); EOSINOPHILS % (AUTO) 3 % (0-10); HEMATOCRIT 44 % (40-54); LYMPHOCYTES # (AUTO) 1.6 X 10^3 (1.0-4.0); LYMPHOCYTES % (AUTO) 12 % (12-44); MEAN CORPUSCULAR HEMOGLOBIN 29 pg (25-34); MEAN CORPUSCULAR HGB CONC 34 g/dL (32-36); MEAN CORPUSCULAR VOLUME 85 fL (80-99); MEAN PLATELET VOLUME 10.3 fL (9.0-12.2); MONOCYTES # (AUTO) 1.1 X 10^3 (0.0-1.0); MONOCYTES % (AUTO) 8 % (0-12); NEUTROPHILS # (AUTO) 10.2 X 10^3 (1.8-7.8); NEUTROPHILS % (AUTO) 77 % (42-75); PLATELET COUNT 283 10^3/uL (130-400); POTASSIUM 4.1 MMOL/L (3.6-5.0); WHITE BLOOD COUNT 13.3 10^3/uL (4.3-11.0)
[2022-06-12 15:15] LABS: CALCIUM 10.1 MG/DL (8.5-10.1)
[2022-06-12] MEDS ORDERED: fentaNYL INJ 100 MCG/2 ML AMP IVP ONE (15:15)
[2022-06-12 15:16] LABS: TOTAL PROTEIN 8.4 GM/DL (6.4-8.2)
[2022-06-12 15:18] LABS: BILIRUBIN,TOTAL 0.7 MG/DL (0.1-1.0)
[2022-06-12 15:20] LABS: CREATININE SERUM 0.76 MG/DL (0.60-1.30)
[2022-06-12] MEDS ORDERED: morphine INJ 10 MG/ML 1ML (SYR OR VIAL) IVP STA ×2 (15:26→17:25)
[2022-06-12] MEDS ORDERED: IOHEXOL 350 MG/ML 100 ML (OMNIPAQUE 350) VIAL IV ONE (15:30)
[2022-06-12] MEDS ORDERED: NS 100 ML (IVPB) BAG IV ONE (15:30)
[2022-06-12] MEDS ORDERED: HOLD METFORMIN - RECEIVED CONTRAST 20 ML VIAL IV SCH (15:30)
--- NOTE | 2022-06-12 16:00 | Diagnostic Imaging Report ---
PROCEDURE: CT abdomen and pelvis with contrast. TECHNIQUE: Multiple contiguous axial images were obtained through the abdomen and pelvis after administration of intravenous contrast. Auto Exposure Controls were utilized during the CT exam to meet ALARA standards for radiation dose reduction. All CT scans use one or more of the following dose optimizing techniques: automated exposure control, MA and/or KvP adjustment based on patient size and exam type or iterative reconstruction. INDICATION: Generalized abdominal pain. COMPARISON: None FINDINGS: The lung bases demonstrate dependent atelectasis. There is elevation of the right hemidiaphragm. The heart is normal in size. There is no pericardial effusion. The liver demonstrates no focal lesions. Cholecystectomy clips are noted. The spleen appears normal. The pancreas demonstrates fatty atrophy, but no focal lesions are seen. There may be mild peripancreatic edema about the head. The adrenal glands appear normal. The kidneys demonstrate no abnormal enhancement or hydronephrosis. There are small cysts on the left kidney. The appendix is normal. There is moderate stool in the colon. No free fluid or free air is seen. No bowel distention is seen. There is no lymphadenopathy. The aorta is normal in caliber. There are degenerative changes at L5-S1 but no acute osseous abnormality is seen. IMPRESSION: 1. Mild peripancreatic edema, concerning for pancreatitis. Please correlate with lipase. Dictated by: Dictated on workstation # [id number]
--- NOTE | 2022-06-12 17:27 | ED Abdominal Pain ---
General Chief Complaint: Abdominal/GI Problems Stated Complaint: ABD PAIN | BACK PAIN Nursing Triage Note: PT AMB TO TRIAGE W C/O GENERALIZED ABD PAIN THAT RADIATES TO HIS MID BACK SX 06/11/22. Source of Information: Patient, Old Records Exam Limitations: No Limitations History of Present Illness Date Seen by Provider: Jun 12, 2022 Time Seen by Provider: 14:38 Initial Comments This 47-year-old gentleman presents to the emergency room with complaints of upper abdominal pain that has bothered him intermittently for about 3 years but became much much worse over the past 2 days. It is specifically much worse after eating. He has a vague sensation of fullness, bloating or nausea without vomiting. He feels like he could be constipated. He takes Protonix 40 mg twice daily but that has not controlled his symptoms. Symptoms are worse with lying down. He tried to have a bowel movement to determine if that would help, but he was not able to have a bowel movement. He has had no diarrhea. Often the pain starts after eating and resolves overnight when he sleeps. He was seen at the [facility] clinic and reports a negative H. pylori test was performed there. He does have a history of prior pancreatitis. He denies any new medications or alcohol use. Allergies and Home Medications Allergies Coded Allergies: Tetanus Vaccines and Toxoid (Verified Adverse Reaction, Unknown, fever chills, 08/15/16) Patient Home Medication List Home Medication List Reviewed: Yes Acetaminophen/Diphenhydramine (Acetaminophen Pm Caplet) 1 Each Tablet, 2 TAB PO HS PRN for SLEEP/PAIN, (Reported) Entered as Reported by: SANG HOLLIADY on 09/04/16 0934 Cyclobenzaprine HCl (Cyclobenzaprine HCl) 10 Mg Tablet, 10 MG PO Q8H PRN for MUSCLE SPASMS Prescribed by: CHACHO FINCH on 09/04/16 1417 Gabapentin (Gabapentin) 300 Mg Capsule, 300 MG PO TID PRN for PAIN, (Reported) Entered as Reported by: ANASTACIA KRUEGER on 09/04/16 010 Glimepiride (Glimepiride) 4 Mg Tablet, 4 MG PO BID, (Reported) Entered as Reported by: ANASTACIA KRUEGER on 09/04/16 010 Ibuprofen (Ibuprofen) 800 Mg Tablet, 800 MG PO Q8H PRN for PAIN, (Reported) Entered as Reported by: SANG HOLLIDAY on 09/04/16 0933 Insulin Aspart (Novolog) 100 Unit/1 Ml Susp, SQ AC, (Reported) Entered as Reported by: ANASTACIA KRUEGER on 09/04/16103 Insulin Degludec (Tresiba Flextouch U-100) 100 Unit/1 Ml Insuln.pen, 10 UNIT SQ DAILY, (Reported) Entered as Reported by: ANASTACIA KRUEGER on 09/04/16103 Lisinopril (Lisinopril) 20 Mg Tablet, 20 MG PO HS, (Reported) Entered as Reported by: ANASTACIA KRUEGER on 09/04/16103 Metformin HCl (Metformin HCl) 1,000 Mg Tablet, 1,000 MG PO BID, (Reported) Entered as Reported by: ANASTACIA KRUEGER on 09/04/16103 Metoclopramide HCl (Metoclopramide HCl) 10 Mg Tablet, 10 MG PO TID PRN for STOMACH UPSET, (Reported) Entered as Reported by: ANASTACIA KRUEGER on 09/04/16101 Oxycodone HCl/Acetaminophen (Percocet 10-325 mg Tablet) 1 Each Tablet, 1 EACH PO PRN PRN for PAIN Prescribed by: CHACHO FINCH on 09/04/16 1417 Pantoprazole Sodium (Pantoprazole Sodium) 40 Mg Tablet.dr, 40 MG PO DAILY, (Reported) Entered as Reported by: ANASTACIA KRUEGER on 09/04/16101 Sertraline HCl (Sertraline HCl) 100 Mg Tablet, 100 MG PO DAILY, (Reported) Entered as Reported by: ANASTACIA KRUEGER on 09/04/16103 Review of Systems Review of Systems Constitutional: no symptoms reported EENTM: No Symptoms Reported Respiratory: No Symptoms Reported Cardiovascular: No Symptoms Reported Gastrointestinal: See HPI Genitourinary: No Symptoms Reported Musculoskeletal: no symptoms reported Skin: no symptoms reported Psychiatric/Neurological: No Symptoms Reported Endocrine: No Symptoms Reported Hematologic/Lymphatic: No Symptoms Reported Past Afgfgij-Ujcydx-Jfgcjl Hx Patient Social History Tobacco Use?: No Use of E-Cig and/or Vaping dev: No Substance use?: No Alcohol Use?: No Immunizations Up To Date Influenza Vaccine Up-to-Date: No; Not Current First/Initial COVID19 Vaccinat: 2020 Second COVID19 Vaccination Eliseo: 2020 Third COVID19 Vaccination Date: NONE COVID19 Vaccine [employer]: ChannelBreeze X2 Seasonal Allergies Seasonal Allergies: No Past Medical History Surgeries: Yes Gallbladder Respiratory: No Cardiac: Yes Hypertension Neurological: No Reproductive Disorders: No Genitourinary: No Gastrointestinal: Yes Gastroesophageal Reflux, Pancreatitis (Idiopathic) Musculoskeletal: Yes (SCIATICA) Chronic Back Pain Endocrine: Yes Diabetes, Insulin dep HEENT: No Cancer: No Psychosocial: No Integumentary: No Blood Disorders: No Physical Exam Vital Signs Vital Signs - First Documented 06/12/22 14:32 Temp 36.8 Pulse 100 Resp 20 B/P (MAP) 137/80 (99) Pulse Ox 99 O2 Delivery Room Air Capillary Refill : Less Than 3 Seconds Height/Weight/BMI Height: 6'2.00" Weight: 230lbs. 0.0oz. [id number]; 32.00 BMI Method:Stated General Appearance: WD/WN, mild distress, obese HEENT: PERRL/EOMI, normal ENT inspection Neck: full range of motion Respiratory: lungs clear, normal breath sounds, no respiratory distress Cardiovascular: regular rate, rhythm, no edema, no murmur Gastrointestinal: normal bowel sounds, soft; No distended; tenderness (Across the upper abdomen) Extremities: normal inspection, no pedal edema Neurologic/Psychiatric: no motor/sensory deficits, alert, normal mood/affect, oriented x 3 Skin: normal color, warm/dry Progress/Results/Core Measures Results/Orders Lab Results Laboratory Tests Test 06/12/22 14:45 06/12/22 15:00 Range/Units White Blood Count 13.3 H 4.3-11.0 10^3/uL Red Blood Count 5.25 4.30-5.52 10^6/uL Hemoglobin 15.0 13.3-17.7 g/dL Hematocrit 44 40-54 % Mean Corpuscular Volume 85 80-99 fL Mean Corpuscular Hemoglobin 29 25-34 pg Mean Corpuscular Hemoglobin Concent 34 32-36 g/dL Red Cell Distribution Width 12.6 10.0-14.5 % Platelet Count 283 130-400 10^3/uL Mean Platelet Volume 10.3 9.0-12.2 fL Immature Granulocyte % (Auto) 0 % Neutrophils (%) (Auto) 77 H 42-75 % Lymphocytes (%) (Auto) 12 12-44 % Monocytes (%) (Auto) 8 0-12 % Eosinophils (%) (Auto) 3 0-10 % Basophils (%) (Auto) 1 0-10 % Neutrophils # (Auto) 10.2 H 1.8-7.8 X 10^3 Lymphocytes # (Auto) 1.6 1.0-4.0 X 10^3 Monocytes # (Auto) 1.1 H 0.0-1.0 X 10^3 Eosinophils # (Auto) 0.4 H 0.0-0.3 10^3/uL Basophils # (Auto) 0.1 0.0-0.1 10^3/uL Immature Granulocyte # (Auto) 0.0 0.0-0.1 10^3/uL Sodium Level 135 135-145 MMOL/L Potassium Level 4.1 3.6-5.0 MMOL/L Chloride Level 99 98-107 MMOL/L Carbon Dioxide Level 23 21-32 MMOL/L Anion Gap 13 5-14 MMOL/L Blood Urea Nitrogen 6 L 7-18 MG/DL Creatinine 0.76 0.60-1.30 MG/DL Estimat Glomerular Filtration Rate 110 BUN/Creatinine Ratio 8 Glucose Level 131 H 70-105 MG/DL Calcium Level 10.1 8.5-10.1 MG/DL Corrected Calcium 9.8 8.5-10.1 MG/DL Total Bilirubin 0.7 0.1-1.0 MG/DL Aspartate Amino Transf (AST/SGOT) 29 5-34 U/L Alanine Aminotransferase (ALT/SGPT) 16 0-55 U/L Alkaline Phosphatase 88 40-136 U/L C-Reactive Protein High Sensitivity 4.18 H 0.00-0.50 MG/DL Total Protein 8.4 H 6.4-8.2 GM/DL Albumin 4.4 3.2-4.5 GM/DL Lipase 145 H 8-78 U/L Urine Color YELLOW Urine Clarity CLEAR Urine pH 6.0 5-9 Urine Specific [place] <=1.005 1.016-1.022 Urine Protein NEGATIVE NEGATIVE Urine Glucose (UA) NEGATIVE NEGATIVE Urine Ketones NEGATIVE NEGATIVE Urine Nitrite NEGATIVE NEGATIVE Urine Bilirubin NEGATIVE NEGATIVE Urine Urobilinogen 0.2 < = 1.0 MG/DL Urine Leukocyte Esterase NEGATIVE NEGATIVE Urine RBC (Auto) NEGATIVE NEGATIVE Urine RBC RARE /HPF Urine WBC RARE /HPF Urine Squamous Epithelial Cells RARE /HPF Urine Crystals NONE /LPF Urine Bacteria NEGATIVE /HPF Urine Casts NONE /LPF Urine Mucus NEGATIVE /LPF Urine Culture Indicated NO My Orders Orders - GWENDOLYN CHA MD Ua Culture If Indicated (06/12/22 14:38) Hs C Reactive Protein (06/12/22 15:01) Lipase (06/12/22 15:01) Ed Iv/Invasive Line Start (06/12/22 15:01) Fentanyl Inj (Sublimaze Injection) (06/12/22 15:15) Cbc With Automated Diff (06/12/22 15:03) Comprehensive Metabolic Panel (06/12/22 15:03) Ct Abdomen/Pelvis W (06/12/22 15:22) Iohexol Injection (Omnipaque 350 Mg/Ml 1 (06/12/22 15:30) Received Contrast (Hold Metformin- Contr (06/12/22 15:30) Ns (Ivpb) (Sodium Chloride 0.9% Ivpb Bag (06/12/22 15:30) Morphine Injection (Morphine Injection (06/12/22 15:26) Morphine Injection (Morphine Injection (06/12/22 17:25) Ed Admission (Communication) (06/12/22 17:46) Medications Given in ED Current Medications Medications Dose Ordered Sig/Felicia Route Start Time Stop Time Status Last Admin Dose Admin Fentanyl Citrate 50 mcg ONCE ONCE IVP 06/12/22 15:15 06/12/22 15:16 DC 06/12/22 15:13 50 MCG Iohexol 100 ml ONCE ONCE IV 06/12/22 15:30 06/12/22 15:31 DC 06/12/22 15:45 100 ML Sodium Chloride 100 ml ONCE ONCE IV 06/12/22 15:30 06/12/22 15:31 DC 06/12/22 15:45 80 ML Vital Signs/I&O 06/12/22 14:32 Temp 36.8 Pulse 100 Resp 20 B/P (MAP) 137/80 (99) Pulse Ox 99 O2 Delivery Room Air Blood Pressure Mean: 99 Progress Progress Note : Progress Note Patient required multiple doses of opioid analgesics. He had mild elevation in lipase, CBC and CRP. These lab findings in combination with his significant pain prompted CT scan. CT revealed probable pancreatitis without any other acute abnormalities. Diagnostic Imaging Diagonstic Imaging: CT Plain Films/CT/US/NM/MRI: abdomen, pelvis Comments NAME: GEN EIRC REC#: [id number] PT STATUS: REG ER : 1975 PHYSICIAN: GWENDOLYN CHA MD ADMIT DATE: 06/12/22/ER Signed Date of Exam:06/12/22 CT ABDOMEN/PELVIS W PROCEDURE: CT abdomen and pelvis with contrast. TECHNIQUE: Multiple contiguous axial images were obtained through the abdomen and pelvis after administration of intravenous contrast. Auto Exposure Controls were utilized during the CT exam to meet ALARA standards for radiation dose reduction. All CT scans use one or more of the following dose optimizing techniques: automated exposure control, MA and/or KvP adjustment based on patient size and exam type or iterative reconstruction. INDICATION: Generalized abdominal pain. COMPARISON: None FINDINGS: The lung bases demonstrate dependent atelectasis. There is elevation of the right hemidiaphragm. The heart is normal in size. There is no pericardial effusion. The liver demonstrates no focal lesions. Cholecystectomy clips are noted. The spleen appears normal. The pancreas demonstrates fatty atrophy, but no focal lesions are seen. There may be mild peripancreatic edema about the head. The adrenal glands appear normal. The kidneys demonstrate no abnormal enhancement or hydronephrosis. There are small cysts on the left kidney. The appendix is normal. There is moderate stool in the colon. No free fluid or free air is seen. No bowel distention is seen. There is no lymphadenopathy. The aorta is normal in caliber. There are degenerative changes at L5-S1 but no acute osseous abnormality is seen. IMPRESSION: 1. Mild peripancreatic edema, concerning for pancreatitis. Please correlate with lipase. Dictated by: Dictated on workstation # [id number] Dict: 06/12/22 1547 Trans: 06/12/22 1632 [facility] [id number] Interpreted by: ADENIKE DANIELS MD Electronically signed by: ADENIKE DANIELS MD 06/12/22 1632 Departure Communication (Admissions) Time/Spoke to Admitting Phy: 17:27 Dr. Gibbs Impression Primary Impression: Acute pancreatitis Qualified Codes: K85.90 - Acute pancreatitis without necrosis or infection, unspecified Additional Impression: Upper abdominal pain Disposition: ADMITTED INPATIENT Condition: Improved Admissions Decision to Admit Reason: Admit from ER (General) Decision to Admit/Date: Jun 12, 2022 Time/Decision to Admit Time: 17:27 Departure-Patient Inst. Referrals: [facility] (PCP/Family) Primary Care Physician Copy Copies To 1: [facility]/GWENDOLYN MORENO MD Jun 12, 2022 17:27
[2022-06-12 18:00] VITALS: BP 132/89
[2022-06-12] MEDS ORDERED: diphenhydrAMINE 50 MG/ML INJ (BENADRYL) IVP PRN (18:15)
[2022-06-12] MEDS ORDERED: LACTULOSE SYRUP 10GM/15ML (ENULOSE) 30ML UDC PO PRN (18:15)
[2022-06-12] MEDS ORDERED: ONDANSETRON 4 MG (ZOFRAN) ORAL DISSOLVE TAB PO PRN (18:15)
[2022-06-12] MEDS ORDERED: BISACODYL 10 MG SUPP (DULCOLAX) PR PRN (18:15)
[2022-06-12] MEDS ORDERED: polyethylene glycoL POWDER 17 GM (MIRALAX) PACK PO PRN (18:15)
[2022-06-12] MEDS ORDERED: ACETAMINOPHEN 325 MG TABLET PO PRN (18:15)
[2022-06-12] MEDS ORDERED: ENOXAPARIN 40 MG/0.4 ML (LOVENOX) SYR SC SCH (18:15)
[2022-06-12] MEDS ORDERED: ANTACID SUSP 30 ML UDC (MYLANTA) PO PRN (18:15)
[2022-06-12] MEDS ORDERED: MILK OF MAGNESIA 400 MG/5 ML 30 ML UDC PO PRN (18:15)
[2022-06-12] MEDS ORDERED: MELATONIN 3 MG TABLET PO PRN (18:15)
[2022-06-12] MEDS ORDERED: diphenhydrAMINE 25 MG TAB (BENADRYL) PO PRN (18:15)
[2022-06-12] MEDS ORDERED: ONDANSETRON 4 MG/2 ML (SDV) Z0FRAN IV PRN (18:15)
[2022-06-12] MEDS ORDERED: HYDROmorphone 2 MG/ML VIAL (DILAUDID) IV ONE (18:15)
[2022-06-12] MEDS ORDERED: CALCIUM CARBONATE 500 MG (TUMS) TAB.CHEW PO PRN (18:15)
[2022-06-12] MEDS ORDERED: NS IV 1000 ML 1,000 ML ONE (18:30)
[2022-06-12 18:33] VITALS: BP 132/89
[2022-06-12] MEDS: HYDROmorphone 2 MG/ML VIAL (DILAUDID) IV PRN ×3 (18:36→23:18)
[2022-06-12] MEDS: NS IV 1000 ML 1,000 ML IV SCH (18:38)
[2022-06-12 18:50] VITALS: BP 132/89
[2022-06-12] MEDS ORDERED: RT-ALBUTEROL SULF 2.5 MG/3 ML PRE-MIX VIAL INH PRN (19:00)
[2022-06-12] MEDS: SENNOSIDES 8.6 MG (SENOKOT) TAB PO SCH (20:08)
[2022-06-12] MEDS: DOCUSATE SODIUM 100 MG (COLACE) CAP PO SCH (20:08)
[2022-06-12 20:13] VITALS: BP 119/83
[2022-06-12] MEDS: inSUlin ASPART (NovoLOG) 1 UNIT/0.01 ML (CHARGE PER UNIT) SC SCH (21:54)
[2022-06-12 23:03] VITALS: BP 164/94
[2022-06-13] MEDS: inSUlin ASPART (NovoLOG) 1 UNIT/0.01 ML (CHARGE PER UNIT) SC SCH ×3 (00:02→12:06)
[2022-06-13] MEDS ORDERED: DOCU-26 PO (00:19)
[2022-06-13] MEDS ORDERED: ASPI-999 PO (00:19)
[2022-06-13] MEDS ORDERED: TIRZ5PEN SQ (00:34)
[2022-06-13] MEDS ORDERED: GABA300C PO (00:34)
[2022-06-13] MEDS ORDERED: ASCO500T17 PO (00:34)
[2022-06-13] MEDS ORDERED: MULT-1136 PO (00:34)
[2022-06-13] MEDS ORDERED: ATOR40TA70 PO (00:34)
[2022-06-13] MEDS ORDERED: CHOL500044 PO (00:34)
[2022-06-13] MEDS ORDERED: CYCL10TA25 PO ×2 (00:34→01:03)
[2022-06-13] MEDS ORDERED: GABA600T PO (00:34)
[2022-06-13] MEDS ORDERED: MTC10T PO (00:34)
[2022-06-13] MEDS ORDERED: FAMO20TA3 PO (00:34)
[2022-06-13] MEDS ORDERED: PIOG45TA65 PO (00:34)
[2022-06-13] MEDS ORDERED: INSU100V SQ (01:03)
[2022-06-13] MEDS ORDERED: GLUC1AUT2 (01:03)
[2022-06-13] MEDS ORDERED: MELO7.5T46 PO (01:03)
[2022-06-13] MEDS ORDERED: INSU100I43 SQ (01:03)
[2022-06-13] MEDS: HYDROmorphone 2 MG/ML VIAL (DILAUDID) IV PRN ×3 (02:15→08:18)
[2022-06-13] MEDS: NS IV 1000 ML 1,000 ML IV SCH ×2 (02:15→10:14)
[2022-06-13 03:28] VITALS: BP 138/88
[2022-06-13] MEDS ORDERED: TRM50T PO (05:15)
--- NOTE | 2022-06-13 05:44 | History & Physical-Hospitalist ---
History of Present Illness Date Seen 06/13/22 Time Seen by a Provider: 11:00 Attending Physician [place]/[facility] PCP Admitting Physician: Lavonne Gibbs DO Attending Physician: Lavonne Gibbs DO Referring Physician Date of Admission Jun 12, 2022 at 17:46 Home Medications & Allergies Home Medications Reviewed patient Home Medication Reconciliation performed by pharmacy medication reconciliations crown and bridge dental lab technician and/or nursing. Patients Allergies have been reviewed. Allergies Allergies Coded Allergies Tetanus Vaccines and Toxoid (Verified Adverse Reaction, Unknown, fever chills, 08/15/16) Past Jknxqbs-Yqcoig-Hvymji Hx Patient Social History Tobacco Use?: No Use of E-Cig and/or Vaping dev: No Substance use?: No Alcohol Use?: No Pt feels they are or have been: No Immunizations Up To Date First/Initial COVID19 Vaccinat: 2020 Second COVID19 Vaccination Eliseo: 2020 Seasonal Allergies Seasonal Allergies: No Current Status Advance Directives: No Communicates: Does Not Communicate Primary Language: Hebrew Preferred Spoken Language: Hebrew Is interpretation needed?: No Implanted or Applied Medical D: None Past Medical History Surgeries: Gallbladder Hypertension Gastroesophageal Reflux, Pancreatitis (Idiopathic) Chronic Back Pain Diabetes, Insulin dep Blood Disorders: No Physical Exam Physical Exam Vital Signs Vital Signs - First Documented 06/12/22 14:32 Temp 36.8 Pulse 100 Resp 20 B/P (MAP) 137/80 (99) Pulse Ox 99 O2 Delivery Room Air Capillary Refill : Less Than 3 Seconds Height, Weight, BMI Height: 6'2.00" Weight: 230lbs. 0.0oz. 104.635389xm; 32.22 BMI Method:Stated Results Results/Procedures Labs Laboratory Tests 06/12/22 14:45 06/13/22 05:48 Patient resulted labs reviewed. LAVONNE GIBBS DO Jun 13, 2022 05:44
[2022-06-13 05:56] LABS: BASOPHILS # (AUTO) 0.1 10^3/uL (0.0-0.1); BASOPHILS % (AUTO) 0 % (0-10); EOSINOPHILS # (AUTO) 0.3 10^3/uL (0.0-0.3); EOSINOPHILS % (AUTO) 2 % (0-10); HEMATOCRIT 38 % (40-54); LYMPHOCYTES # (AUTO) 1.7 10^3/uL (1.0-4.0); LYMPHOCYTES % (AUTO) 13 % (12-44); MEAN CORPUSCULAR HEMOGLOBIN 28 pg (25-34); MEAN CORPUSCULAR HGB CONC 34 g/dL (32-36); MEAN CORPUSCULAR VOLUME 84 fL (80-99); MEAN PLATELET VOLUME 10.4 fL (9.0-12.2); MONOCYTES # (AUTO) 1.4 10^3/uL (0.0-1.0); MONOCYTES % (AUTO) 11 % (0-12); NEUTROPHILS # (AUTO) 9.6 10^3/uL (1.8-7.8); NEUTROPHILS % (AUTO) 74 % (42-75); PLATELET COUNT 231 10^3/uL (130-400); WHITE BLOOD COUNT 13.1 10^3/uL (4.3-11.0)
[2022-06-13 06:31] LABS: ALBUMIN 3.6 GM/DL (3.2-4.5); BILIRUBIN,TOTAL 0.7 MG/DL (0.1-1.0); CALCIUM 8.8 MG/DL (8.5-10.1); CREATININE SERUM 0.68 MG/DL (0.60-1.30); POTASSIUM 3.9 MMOL/L (3.6-5.0); TOTAL PROTEIN 7.1 GM/DL (6.4-8.2)
[2022-06-13 08:00] VITALS: BP 145/87
[2022-06-13] MEDS: DOCUSATE SODIUM 100 MG (COLACE) CAP PO SCH (08:17)
[2022-06-13] MEDS ORDERED: PANTOPRAZOLE 40 MG (PROTONIX) VIAL IV SCH (09:00)
[2022-06-13] MEDS: SENNOSIDES 8.6 MG (SENOKOT) TAB PO SCH (10:01)
[2022-06-13 11:27] VITALS: BP 136/83
[2022-06-13] MEDS ORDERED: ACHYD1T PO (11:56)
--- NOTE | 2022-06-13 11:57 | Short Stay Summary-Hospitalist ---
History of Present Illness HPI/Chief Complaint Chief complaint: Acute on chronic pancreatitis HPI: This is a 47-year-old male clinic patient of Fernanda Young who has a past medical history of acute pancreatitis due to biliary gallbladder source who presented to the ER with abdominal pain found to have mild flare of pancreatitis. He is much better and wants to go home. Hydrocodone 10/325 will be given for the pain. No nausea reported. I recommended clear liquid diet when he went home. Source: patient Exam Limitations: no limitations Date Seen 06/13/22 Time Seen by a Provider: 11:30 Attending Physician [place]/[facility] PCP Admitting Physician: Lavonne Gibbs DO Attending Physician: Lavonne Gibbs DO Referring Physician Date of Admission Jun 12, 2022 at 17:46 Home Medications & Allergies Home Medications Reviewed patient Home Medication Reconciliation performed by pharmacy medication reconciliations contact lens technician and/or nursing. Patients Allergies have been reviewed. Allergies Allergies Coded Allergies Tetanus Vaccines and Toxoid (Verified Adverse Reaction, Unknown, fever chills, 08/15/16) Past Grirtsd-Dpbhvl-Lbgzhy Hx Patient Social History Marrital Status: Employed/Student: employed Tobacco Use?: No Smoking Status: Never a Smoker Use of E-Cig and/or Vaping dev: No Substance use?: No Alcohol Use?: No Pt feels they are or have been: No Immunizations Up To Date First/Initial COVID19 Vaccinat: 2020 Second COVID19 Vaccination Eliseo: 2020 Seasonal Allergies Seasonal Allergies: No Current Status Advance Directives: No Communicates: Does Not Communicate Primary Language: Uzbek Preferred Spoken Language: Uzbek Is interpretation needed?: No Implanted or Applied Medical D: None Past Medical History Surgeries: Gallbladder Hypertension Gastroesophageal Reflux, Pancreatitis (Idiopathic) Chronic Back Pain Diabetes, Insulin dep Blood Disorders: No Review of Systems Constitutional: see HPI Gastrointestinal: abdominal pain, nausea, vomiting Physical Exam Physical Exam Vital Signs Vital Signs - First Documented 06/12/22 14:32 Temp 36.8 Pulse 100 Resp 20 B/P (MAP) 137/80 (99) Pulse Ox 99 O2 Delivery Room Air Capillary Refill : Less Than 3 Seconds Height, Weight, BMI Height: 6'2.00" Weight: 230lbs. 0.0oz. 104.114309zj; 32.22 BMI Method:Stated General Appearance: No Apparent Distress, WD/WN Eyes: Bilateral Eye Normal Inspection, Bilateral Eye PERRL HEENT: PERRL/EOMI, TMs Normal, Normal ENT Inspection, Pharynx Normal Neck: Full Range of Motion, Normal Inspection, Non Tender, Supple, Carotid Bruit Respiratory: Chest Non Tender, Lungs Clear, Normal Breath Sounds, No Accessory Muscle Use, No Respiratory Distress Cardiovascular: Regular Rate, Rhythm, No Edema, No Gallop, No JVD, No Murmur, Normal Peripheral Pulses Gastrointestinal: Normal Bowel Sounds, No Organomegaly, No Pulsatile Mass, Non Tender, Soft Back: Normal Inspection, No CVA Tenderness, No Vertebral Tenderness Extremity: Normal Capillary Refill, Normal Inspection, Normal Range of Motion, Non Tender, No Calf Tenderness, No Pedal Edema Neurologic/Psychiatric: Alert, Oriented x3, No Motor/Sensory Deficits, Normal Mood/Affect Skin: Normal Color, Warm/Dry Lymphatic: No Adenopathy Results Results/Procedures Labs Laboratory Tests 06/12/22 14:45 06/13/22 05:48 Patient resulted labs reviewed. Short Stay Diagnosis Discharge Diagnosis-Short Stay Admission Diagnosis Acute on chronic pancreatitis Final Discharge Diagnosis Acute on chronic pancreatitis Conclusion Plan Discharge home LAVONNE GIBBS DO Jun 13, 2022 11:57
[2022-06-13 12:14] LABS: CHOLESTEROL 88 MG/DL (< 200); HDL CHOLESTEROL 34 MG/DL (40-60); TRIGLYCERIDES 87 MG/DL (<150); VLDL CHOLESTEROL 17 MG/DL (5-40)
== END 2022-06-13 11:54 | disposition home or self-care (01) ==
LOC: EDUNIT# 14:19 → ER 14:23 → 4TH 17:46 → UNDOADMOB 17:46 → 4TH 18:20 → UNDODISOB 06-13 11:54
PROVIDERS: ADMIT Internal Medicine; ATTEND Internal Medicine
DX: K85.90 Acute pancreatitis without necrosis or infection, unspecified (principal); K86.1 Other chronic pancreatitis
CPT/HCPCS: 36415; 74177; 80053; 80061; 81000; 82947; 83690; 85025; 86141; 96361; 96372; 96375; 96376

== ENCOUNTER 2022-07-15 09:31 | Outpatient (CLI) | payer BC ==
[~2022-07-15] VITALS: Ht 188 cm; Wt 112.7 kg
[~2022-07-15 09:31] MED LIST changes: +ACHYD1T PO; +ASCO500T17 PO; +ASPI-999 PO; +ATOR40TA70 PO; +CHOL500044 PO; +DOCU-26 PO; +FAMO20TA3 PO; +GABA300C PO; +GABA600T PO; +GLUC1AUT2; +INSU100I43 SQ; +INSU100V SQ; +MELO7.5T46 PO; +MULT-1136 PO; +PIOG45TA65 PO; +TIRZ5PEN SQ; +TRM50T PO
[2022-07-15] MEDS ORDERED: CETI10TA17 PO (10:54)
[2022-07-15] MEDS ORDERED: INSU100I23 SQ (10:54)
[2022-07-15] MEDS ORDERED: ONDA4TAB11 SL (10:54)
== END 2022-07-15 10:56 ==
LOC: PREOP 09:31
PROVIDERS: ATTEND Surgery
DX: Z01.818 Encounter for other preprocedural examination (principal); R10.13 Epigastric pain

== ENCOUNTER 2022-07-24 10:13 | Day surgery (SDC) | payer BC ==
[~2022-07-24] VITALS: Ht 188 cm; Wt 112.7 kg
[~2022-07-24 10:13] MED LIST changes: +CETI10TA17 PO; +INSU100I23 SQ; +ONDA4TAB11 SL
[2022-07-24] MEDS ORDERED: LACTATED RINGERS 1,000 ML IV STA (10:35)
[2022-07-24] MEDS ORDERED: LACTATED RINGERS 1,000 ML IV PRN (10:45)
[2022-07-24] MEDS ORDERED: HURRICAINE EXT TUBE (BENZOCAINE) XX PRN (10:45)
[2022-07-24 10:49] VITALS: BP 140/97
[2022-07-24] MEDS ORDERED: PROPOFOL INJECTION 50 ML IV ONE (13:39)
[2022-07-24] MEDS ORDERED: MIDAZOLAM 2 MG/2 ML (VERSED) VIAL ONE (13:39)
--- NOTE | 2022-07-24 13:42 | Progress Note-Pre Operative ---
Pre-Operative Progress Note Date of Available H&P: Jun 29, 2022 Date H&P Reviewed: Jul 24, 2022 Time H&P Reviewed: 13:42 History & Physical: H&P Reviewed, Patient Examed, No changes noted Pre-Operative Diagnosis: epigastric pain, gerd, screening colon MARISA COLÓN DO Jul 24, 2022 13:42
[2022-07-24 14:10] VITALS: BP 116/66
[2022-07-24 14:15] VITALS: BP 124/77
--- NOTE | 2022-07-24 14:26 | Discharge Inst-Simple/Standard ---
Discharge Inst-Standard Patient Instructions/Follow Up Plan of Care/Instructions/FU: 2 weeks Matthias Activity as Tolerated: Yes Discharge Diet: Regular Diet MARISA COLÓN DO Jul 24, 2022 14:26
--- NOTE | 2022-07-24 14:27 | Anesthesia-General Post-Op ---
MAC Patient Condition Mental Status/LOC: Same as Preop Cardiovascular: Satisfactory Nausea/Vomiting: Absent Respiratory: Satisfactory Pain: Controlled Complications: Absent Post Op Complications Complications None Follow Up Care/Instructions Patient Instructions None needed. Anesthesiology Discharge Order Discharge Order Patient is doing well, no complaints, stable vital signs, no apparent adverse anesthesia problems. No complications reported per nursing. EDDI DESAI CRNA Jul 24, 2022 14:27
--- NOTE | 2022-07-24 14:28 | Progress Note-Post Operative ---
Post-Operative Progess Note Surgeon (s)/Metal Fabricating Supervisor (s) Surgeon MARISA COLÓN DO Metal Fabricating Supervisor: ns Pre-Operative Diagnosis epigastric pain, gerd, screening colon Post-Operative Diagnosis reflux esophagitis normal colon Procedure & Operative Findings Date of Procedure 07/24/22 Procedure Performed/Findings egd c biopsies, colonoscopy Anesthesia Type per family engagement specialist Estimated Blood Loss Estimated blood loss (mL): none Specimens/Packing Specimens Removed antrum, ge MARISA COLÓN DO Jul 24, 2022 14:28
[2022-07-24 14:35] VITALS: BP 130/80
[2022-07-24 14:37] VITALS: BP 130/80
--- NOTE | 2022-07-25 01:35 | OPERATIVE REPORT ---
DATE OF SERVICE: 07/24/2022 PREOPERATIVE DIAGNOSES: Epigastric abdominal pain, GERD and screening colonoscopy. POSTOPERATIVE DIAGNOSES: Reflux esophagitis, normal colon. PROCEDURE: EGD with biopsies, colonoscopy. SURGEON: Marisa Rizzo DO ANESTHESIA: Per [employer]. ESTIMATED BLOOD LOSS: None. COMPLICATIONS: None. INDICATIONS: The patient is a 47-year-old male with GERD, epigastric abdominal pain, needing screening colonoscopy. He understands risks and benefits of procedure and wished to proceed. Consent was signed in chart. DESCRIPTION OF PROCEDURE: The patient was taken to the endoscopy suite, placed in left lateral recumbent position. Timeout was performed. Scope was inserted in the mouth, down the esophagus into the stomach and into the duodenum without difficulty. No polyps, masses, ulcerations within the duodenum. Scope was slowly retracted back and the stomach was further insufflated. No polyps, masses, ulcerations within the stomach. A biopsy of the antrum was obtained. Scope was retroflexed. There was no other pathology. Scope was returned to its normal position slowly withdrawn to the distal esophagus. Biopsy of the GE junction was obtained. Site changes or reflux esophagitis. Scope was slowly retracted back until completely removed, noting no other pathology. Digital rectal exam was performed. No palpable polyps, masses or ulcerations. Scope was inserted in the rectum and all the way to the cecum with minimal difficulty. Prep was adequate. The scope was retracted back. No polyps, masses or ulceration in the cecum, ascending, transverse, descending and sigmoid colon. Once in the rectum, scope was retroflexed, noting no other pathology. Scope was returned to its normal position and slowly withdrawn until completely removed. The patient tolerated the procedure well, no complications, taken to recovery in stable condition. RECOMMENDATIONS: The patient will continue on current medications. We will follow up on biopsy results. We will need a repeat colonoscopy in 10 years unless family history of colon cancer or personal history of polyps, which would then be five years. Any issues before that be seen at that time. Job ID: [id number] DocumentID: [id number] Dictated Date: 07/24/2022 14:37:52 Commis Chef Date: 07/25/2022 01:33:00 Dictated By: MARISA RIZZO DO
== END 2022-07-24 14:37 | disposition home or self-care (01) ==
LOC: ENDO 10:13
PROVIDERS: ATTEND Surgery
DX: Z12.11 Encounter for screening for malignant neoplasm of colon (principal); K21.00 Gastro-esophageal reflux disease with esophagitis, without bleeding; K29.50 Unspecified chronic gastritis without bleeding; E11.9 Type 2 diabetes mellitus without complications; Z79.84 Long term (current) use of oral hypoglycemic drugs; Z79.4 Long term (current) use of insulin; Z79.899 Other long term (current) drug therapy